=== PATIENT | male | born 1955 | race Caucasian/White ===

== ENCOUNTER 2016-10-07 10:06 | Inpatient (IN) | payer OTHER ==
[2016-10-07 10:20] VITALS: BMI 24.4
--- NOTE | 2016-10-07 11:53 | HP ---
CIWA Score - CIWA Score Nausea/Vomitin-No Nausea/No Vomiting Muscle Tremors: 4-Moderate,w/Arms Extend Anxiety: 4-Mod. Anxious/Guarded Agitation: 4-Moderately Restless Paroxysmal Sweats: 3 Orientation: 0-Oriented Tacttile Disturbances: 0-None Auditory Disturbances: 0-None Visual Disturbances: 0-None Headache: 0-None Present CIWA-Ar Total Score: 15 Admission ROS BHS - HPI Chief Complaint: Withdrawal sx. Allergies/Adverse Reactions: Allergies Allergy/AdvReac Type Severity Reaction Status Date / Time No Known Drug Allergies Allergy Verified 10/07/16 10:59 History of Present Illness: 61 y/o man with a long hx. of alcoholism is admitted for detox.Pt. has been in previous detox and residential,reports relapsing shortly after completing program. Exam Limitations: No Limitations - Ebola screening Have you traveled outside of the country in the last 21 days: No Have you had contact with anyone from an Ebola affected area: No Have you been sick,other than usual withdrawal symptoms: No Do you have a fever: No - Review of Systems Constitutional: Diaphoresis EENT: reports: No Symptoms Reported Respiratory: reports: No Symptoms reported Cardiac: reports: No Symptoms Reported GI: reports: Abdominal cramping : reports: No Symptoms Reported Musculoskeletal: reports: Back Pain, Joint Pain Integumentary: reports: Sweating Neuro: reports: Tremors Endocrine: reports: No Symptoms Reported Hematology: reports: No Symptoms Reported Psychiatric: reports: No Sypmtoms Reported Other Systems: Reviewed and Negative Patient History - Patient Medical History Hx Anemia: No Hx Asthma: No Hx Chronic Obstructive Pulmonary Disease (COPD): No Hx Cancer: No Hx Cardiac Disorders: No Hx Congestive Heart Failure: No Hx Hypertension: No Hx Hypercholesterolemia: No Hx Pacemaker: No HX Cerebrovascular Accident: No Hx Seizures: No Hx Dementia: No Hx Diabetes: No Hx Gastrointestinal Disorders: No Hx Liver Disease: No Hx Genitourinary Disorders: No Hx Sexually Transmitted Disorders: Yes (1982- GONORRHEA & Syphillis in 1973) Hx Renal Disease (ESRD): No Hx Thyroid Disease: No Hx Human Immunodeficiency Virus (HIV): No Hx Hepatitis C: No Hx Depression: No Hx Suicide Attempt: No Hx Bipolar Disorder: No Hx Schizophrenia: No Other Medical History: Rheumatoid Arthritis - Patient Surgical History Past Surgical History: Yes Hx Neurologic Surgery: No Hx Cataract Extraction: No Hx Cardiac Surgery: No Hx Lung Surgery: No Hx Breast Surgery: No Hx Breast Biopsy: No Hx Abdominal Surgery: No Hx Appendectomy: No Hx Cholecystectomy: No Hx Genitourinary Surgery: No Hx Section: No Hx Orthopedic Surgery: No Other Surgical History: RT Testicular hernia repair 1992 Anesthesia Reaction: No - PPD History Previous Implant?: Yes Documented Results: Negative w/o proof Implanted On Prior R Admission?: No PPD to be Administered?: Yes - Smoking Cessation Smoking history: Current every day smoker Have you smoked in the past 12 months: Yes Aproximately how many cigarettes per day: 20 Hx Chewing Tobacco Use: No Initiated information on smoking cessation: Yes 'Breaking Loose' booklet given: 10/07/16 - Substance & Tx. History Hx Alcohol Use: Yes Hx Substance Use: Yes Substance Use Type: Alcohol, Cocaine Hx Substance Use Treatment: Yes (Detox & Residential) - Substances Abused Alcohol Route: Oral Frequency: Daily Amount used: Maria Luisa 1 pint & Beer 36 oz Age of first use: 8 Date of Last Use: 10/07/16 Cocaine Route: Inhalation Frequency: 1-3 times last 30 days Amount used: $20 - 1bag Age of first use: 24 Date of Last Use: 10/06/16 Family Disease History - Family Disease History Family History: Denies Admission Physical Exam S - Vital Signs Vital Signs: Vital Signs - 24 hr 10/07/16 10:18 Temperature 96 F L Pulse Rate 116 H Respiratory 20 Rate Blood Pressure 148/78 - Physical General Appearance: Yes: Alcohol on Breath, Tremorous, Irritable, Sweating, Anxious HEENTM: Yes: Within Normal Limits Respiratory: Yes: Chest Non-Tender, Lungs Clear, Normal Breath Sounds Neck: Yes: Supple Breast: Yes: Breast Exam Deferred Cardiology: Yes: Regular Rhythm, Regular Rate, S1, S2 Abdominal: Yes: Normal Bowel Sounds, Non Tender, Soft Genitourinary: Yes: Within Normal Limits Back: Yes: Within Normal Limits Musculoskeletal: Yes: Joint swelling Extremities: Yes: Tremors, Swelling, Other (Deformity of metacarpal joints, ulnar deviation.) Neurological: Yes: Fully Oriented, Alert Integumentary: Yes: Diaphoresis, Rash (left ankle) Lymphatic: Yes: Within Normal Limits - Diagnostic (1) Alcohol dependence with uncomplicated withdrawal Current Visit: Yes Status: Acute (2) Cocaine dependence, uncomplicated Current Visit: Yes Status: Acute (3) Rheumatoid arthritis Current Visit: Yes Status: Acute Cleared for Admission [facility] - Detox or Rehab [facility] Level of Care: Medically Managed Detox Regimen/Protocol: Librium [facility] Breath Alcohol Content Breath Alcohol Content: 0.019 Urine Drug Screen - Results Urine Drug Screen Results: KAZ-Cocaine
[2016-10-07] MEDS ORDERED: MAG HYDROX/AL HYDROX/SIMETH 30 ML UNIT-DOSE CUP PO PRN (12:06)
[2016-10-07] MEDS ORDERED: MAGNESIUM HYDROX 2400MG/30ML ORAL SUSPENSION 30 ML CUP PO PRN (12:06)
[2016-10-07] MEDS ORDERED: MAGNESIUM CITRATE 300 ML BOTTLE PO PRN (12:06)
[2016-10-07] MEDS ORDERED: NICOTINE POLACRILEX 2 MG GUM BUC PRN (12:06)
[2016-10-07] MEDS ORDERED: hydrOXYzine PAMOATE 50 MG CAPSULE (FP) PO PRN (12:06)
[2016-10-07] MEDS ORDERED: P-EPHED 60MG/TRIPROLIDI 2.5MG TABLET PO PRN (12:06)
[2016-10-07] MEDS ORDERED: LOPERAMIDE HCL 2 MG CAPSULE PO PRN (12:06)
[2016-10-07] MEDS ORDERED: IBUPROFEN 400 MG TABLET (FP) PO PRN (12:06)
[2016-10-07] MEDS ORDERED: ACETAMINOPHEN 325 MG TABLET (FP) PO PRN (12:06)
[2016-10-07] MEDS ORDERED: chlordiazePOXIDE HCL 25 MG CAPSULE PO PRN (12:06)
[2016-10-07] MEDS ORDERED: MENTHOL/PHENOL 1 EACH UD MM PRN (12:06)
[2016-10-07] MEDS ORDERED: chlordiazePOXIDE HCL 25 MG CAPSULE PO ONE (12:10)
--- NOTE | 2016-10-07 12:38 | PN ---
S CIWA - CIWA Score Nausea/Vomitin Muscle Tremors: 3 Anxiety: 2 Agitation: 1-Slight > Activity Paroxysmal Sweats: 3 Orientation: 4Disoriented Place/Person Tacttile Disturbances: 2-Mild Itch/Numbness/Burn Auditory Disturbances: 0-None Visual Disturbances: 0-None Headache: 0-None Present CIWA-Ar Total Score: 18 BHS Progress Note (SOAP) Subjective: Diarrhea, Nausea, Stomach Ache, Fatigue, Sweating, Interrupted sleep. Objective: PT. A & O X 1 (DISORIENTED ABOUT DAY / DATE AND ABOUT LOCATION). 10/07/16 12:29 Vital Signs Temperature 96 F L 10/07/16 10:18 Pulse Rate 116 H 10/07/16 10:18 Respiratory Rate 20 10/07/16 10:18 Blood Pressure 148/78 10/07/16 10:18 O2 Sat by Pulse Oximetry (%) ADMISSION LABS NOT YET COLLECTED. 10/07/16 12:39 Assessment: 10/07/16 12:40 WITHDRAWAL SYMPTOMS. Plan: CONTINUE DETOX. ADVISED PATIENT TO FOLLOW-UP WITH [facility] / REHAB MEDICAL PROVIDER AFTER DISCHARGE FROM DETOX FOR GENERAL MEDICAL ASSESSMENT AND FOR ABNORMAL ADMISSION LAB VALUES.
[2016-10-07] MEDS: GABAPENTIN 300 MG CAPSULE (FP) PO SCH (12:43)
[2016-10-07] MEDS: predniSONE 20 MG TABLET (UD) PO SCH (12:43)
[2016-10-07] MEDS: PANTOPRAZOLE 40 MG TABLET (FP) PO SCH (12:43)
[2016-10-07] MEDS: guaiFENesin/D-METHORPHAN HB 10 ML UNIT-DOSE CUPS PO PRN (12:44)
[2016-10-07] MEDS: NICOTINE 21 MG/24 HOURS TOPICAL PATCH TD SCH (13:32)
[2016-10-07] MEDS: HYDROCORTISONE 1% TOPICAL CREAM 30 GM TUBE TP SCH ×3 (13:33→22:30)
--- NOTE | 2016-10-07 15:50 | CONSULT ---
[facility] Psychiatric Consult - Data Date of interview: 10/07/16 Admission source: [facility] Identifying data: This is 61 years old male with no psychiatric hospitalization history intoxicated with: Alcohol, Cocaine and Nicotine Substance Abuse History: - Smoking Cessation. Smoking history: Current every day smoker. Have you smoked in the past 12 months: Yes. Aproximately how many cigarettes per day: 20. Hx Chewing Tobacco Use: No. Initiated information on smoking cessation: Yes. 'Breaking Loose' booklet given: 10/07/16. - Substance & Tx. History. Hx Alcohol Use: Yes. Hx Substance Use: Yes. Substance Use Type : Alcohol, Cocaine. Hx Substance Use Treatment: Yes (Detox & Residential). - Substances Abused. Alcohol. Route: Oral. Frequency: Daily. Amount used: Maria Luisa 1 pint & Beer 36 oz. Age of first use: 8. Date of Last Use: 10/07/16. Cocaine. Route: Inhalation. Frequency: 1-3 times last 30 days. Amount used : $20 - 1bag. Age of first use: 24. Date of Last Use: 10/06/16 Medical History: Rheumathoid Arthritis Psychiatric History: Patioent reports hiostopry of depression and anxiety, reports taking prior to admission: Gabapentin 300mg po bid Physical/Sexual Abuse/Trauma History: Denies Additional Comment: Observation. Detox Unit Care Protocol Mental Status Exam - Mental Status Exam Alert and Oriented to: Person Cognitive Function: Fair Patient Appearance: Well Groomed Mood: Apprehensive Affect: Mood Congruent Patient Behavior: Cooperative Speech Pattern: Appropriate Voice Loudness: Mildly Soft/Quiet Thought Process: Goal Oriented Thought Disorder: Being Controlled Hallucinations: Denies Suicidal Ideation: Denies Homicidal Ideation: Denies Insight/Judgement: Fair Sleep: Difficulty falling asleep Appetite: Fair Muscle strength/Tone: Mild Hypotonicity Gait/Station: Shuffling Additional Comments: Observation. Detox Unit Care Protocol Psychiatric Findings - Problem List ([place] 1, 2,3) (1) Alcohol dependence with uncomplicated withdrawal Current Visit: Yes Status: Acute (2) Cocaine dependence, uncomplicated Current Visit: Yes Status: Acute (3) Drug-induced mood disorder Current Visit: Yes Status: Acute - Initial Treatment Plan Initial Treatment Plan: Observation. Detox Unit Care Protocol
--- NOTE | 2016-10-07 16:21 | EKG ---
Test Reason : Blood Pressure : / mmHG Vent. Rate : 108 BPM Atrial Rate : 108 BPM P-R Int : 150 ms QRS Dur : 082 ms QT Int : 322 ms P-R-T Axes : 087 086 076 degrees QTc Int : 431 ms SINUS TACHYCARDIA OTHERWISE NORMAL ECG NO PREVIOUS ECGS AVAILABLE Confirmed by KURT CEDILLO MD ([id number]) on 10/07/2016 4:21:18 PM Referred By: Elpidio Alves Confirmed By:KURT CEDILLO MD
[2016-10-07] MEDS: chlordiazePOXIDE HCL 25 MG CAPSULE PO SCH ×2 (17:18→22:29)
[2016-10-07 17:42] LABS: URINE APPEARANCE CLEAR; URINE BILIRUBIN NEGATIVE (NEGATIVE); URINE BLOOD NEGATIVE (NEGATIVE); URINE COLOR DKYELLOW; URINE GLUCOSE (UA) 1+ (NEGATIVE); URINE KETONE 1+ (NEGATIVE); URINE NITRITE NEGATIVE (NEGATIVE); URINE UROBILINOGEN 2.0 E.U/dl E.U./dl (0.2-1.0)
[2016-10-07 18:12] LABS: URINE LEUK ESTERASE 1+ (NEGATIVE); URINE PROTEIN 1+ (NEGATIVE)
[2016-10-07 19:14] LABS: URINE MUCUS RARE; URINE RBC 4 /hpf (0-3); URINE WBC 12 /hpf (3-5)
[2016-10-07] MEDS: THIAMINE HCL 100 MG TABLET (FP) PO SCH (22:28)
[2016-10-08] MEDS: chlordiazePOXIDE HCL 25 MG CAPSULE PO SCH ×4 (05:40→22:41)
[2016-10-08] MEDS: GABAPENTIN 300 MG CAPSULE (FP) PO SCH (10:34)
[2016-10-08] MEDS: PANTOPRAZOLE 40 MG TABLET (FP) PO SCH (10:34)
[2016-10-08] MEDS: predniSONE 20 MG TABLET (UD) PO SCH (10:34)
[2016-10-08] MEDS: PRENATAL VITAMINS W/ FOLIC ACID TABLET (FP) PO SCH (10:34)
[2016-10-08] MEDS: HYDROCORTISONE 1% TOPICAL CREAM 30 GM TUBE TP SCH ×4 (10:35→22:43)
[2016-10-08] MEDS: NICOTINE 21 MG/24 HOURS TOPICAL PATCH TD SCH (10:35)
[2016-10-08 11:01] LABS: HIV 1 & 2 AB NEGATIVE; HIV 1 AGp24 NEGATIVE
[2016-10-08 11:23] LABS: MCH 32.6 pg (25.7-33.7); MCHC 33.5 g/dl (32.0-35.9); MEAN CELL VOLUME 97.2 fl (80-96); MEAN PLT VOLUME 9.4 fl (7.5-11.1); PLATELET COUNT 204 K/MM3 (134-434); RDW 13.5 % (11.9-15.9); WHITE BLOOD COUNT 8.2 K/mm3 (4.0-10.0)
--- NOTE | 2016-10-08 11:33 | PN ---
S CIWA - CIWA Score Nausea/Vomitin Muscle Tremors: 4-Moderate,w/Arms Extend Anxiety: 4-Mod. Anxious/Guarded Agitation: 4-Moderately Restless Paroxysmal Sweats: 3 Orientation: 0-Oriented Tacttile Disturbances: 0-None Auditory Disturbances: 0-None Visual Disturbances: 0-None Headache: 0-None Present CIWA-Ar Total Score: 18 BHS Progress Note (SOAP) Subjective: nausea, sweats, interrupted sleep, anxiety, tremors Objective: 10/08/16 11:32 Vital Signs - 8 hr 10/08/16 10/08/16 06:30 09:52 Temperature 97.1 F L 97.5 F L Pulse Rate 90 90 Respiratory 18 18 Rate Blood Pressure 127/85 112/77 Laboratory Tests 10/07/16 10/07/16 10/08/16 10:00 14:00 06:00 WBC 8.2 RBC 4.64 Hgb 15.1 Hct 45.1 MCV 97.2 H MCHC 33.5 RDW 13.5 Plt Count 204 MPV 9.4 Urine Color Dkyellow Urine Appearance Clear Urine pH 5.0 Ur Specific [place] 1.024 Urine Protein 1+ H Urine Glucose (UA) 1+ H Urine Ketones 1+ H Urine Blood Negative Urine Nitrite Negative Urine Bilirubin Negative Urine Urobilinogen 2.0 e.u/dl Ur Leukocyte Esterase 1+ H Urine RBC 4 Urine WBC 12 Ur Epithelial Cells Rare Urine Mucus Rare HIV 1&2 Antibody Screen Negative HIV P24 Antigen Negative labs still pending Assessment: 10/08/16 11:32 withdrawal sx Plan: cont detox, fluids, encourage ambulation
[2016-10-08 11:45] LABS: ALBUMIN 4.3 g/dl (3.4-5.0); ALK PHOS 86 U/L (45-117); ANION GAP 10 (8-16); BILIRUBIN,TOTAL 1.2 mg/dL (0.2-1.0); CALCIUM 9.2 mg/dL (8.5-10.1); CO2 27 mmol/L (21-32); COCKROFT - GAULT 75.01; GLUCOSE,RANDOM 98 mg/dL (74-106); SGOT/AST 60 U/L (15-37); SGPT/ALT 42 U/L (12-78); TOT PROT 7.7 g/dl (6.4-8.2)
[2016-10-08 11:49] LABS: SICKLE CELL SCREEN NEGATIVE (NEGATIVE)
[2016-10-08] MEDS: diphenhydrAMINE HCL 50 MG CAPSULE PO PRN (22:41)
[2016-10-08] MEDS: THIAMINE HCL 100 MG TABLET (FP) PO SCH (22:41)
[2016-10-09] MEDS: chlordiazePOXIDE HCL 25 MG CAPSULE PO SCH ×2 (05:17→10:15)
[2016-10-09] MEDS: PANTOPRAZOLE 40 MG TABLET (FP) PO SCH (10:15)
[2016-10-09] MEDS: predniSONE 20 MG TABLET (UD) PO SCH (10:15)
[2016-10-09] MEDS: HYDROCORTISONE 1% TOPICAL CREAM 30 GM TUBE TP SCH ×4 (10:15→22:32)
[2016-10-09] MEDS: GABAPENTIN 300 MG CAPSULE (FP) PO SCH (10:15)
[2016-10-09] MEDS: PRENATAL VITAMINS W/ FOLIC ACID TABLET (FP) PO SCH (10:15)
[2016-10-09] MEDS: NICOTINE 21 MG/24 HOURS TOPICAL PATCH TD SCH (10:16)
--- NOTE | 2016-10-09 12:46 | PN ---
S Progress Note (SOAP) Subjective: Generalized muscle and joint pain Objective: 10/09/16 12:44 Vital Signs - 8 hr 10/09/16 10/09/16 06:42 11:14 Temperature 97.9 F 96.3 F L Pulse Rate 75 84 Respiratory 16 18 Rate Blood Pressure 131/80 143/87 Laboratory Last Values WBC 8.2 K/mm3 (4.0-10.0) 10/08/16 06:00 RBC 4.64 M/mm3 (4.00-5.60) 10/08/16 06:00 Hgb 15.1 GM/dL (11.7-16.9) 10/08/16 06:00 Hct 45.1 % (35.4-49) 10/08/16 06:00 MCV 97.2 fl (80-96) H 10/08/16 06:00 MCHC 33.5 g/dl (32.0-35.9) 10/08/16 06:00 RDW 13.5 % (11.9-15.9) 10/08/16 06:00 Plt Count 204 K/MM3 (134-434) 10/08/16 06:00 MPV 9.4 fl (7.5-11.1) 10/08/16 06:00 Sickle Cell Screen Negative (NEGATIVE) 10/08/16 06:00 Sodium 141 mmol/L (136-145) 10/08/16 06:00 Potassium 4.2 mmol/L (3.5-5.1) 10/08/16 06:00 Chloride 104 mmol/L (98-107) 10/08/16 06:00 Carbon Dioxide 27 mmol/L (21-32) 10/08/16 06:00 Anion Gap 10 (8-16) 10/08/16 06:00 BUN 13 mg/dL (7-18) 10/08/16 06:00 Creatinine 1.0 mg/dL (0.7-1.3) 10/08/16 06:00 Creat Clearance w eGFR > 60 (>60) 10/08/16 06:00 Random Glucose 98 mg/dL (74-106) 10/08/16 06:00 Calcium 9.2 mg/dL (8.5-10.1) 10/08/16 06:00 Total Bilirubin 1.2 mg/dL (0.2-1.0) H 04/21/17 06:00 AST 60 U/L (15-37) H 10/08/16 06:00 ALT 42 U/L (12-78) 10/08/16 06:00 Alkaline Phosphatase 86 U/L (45-117) 10/08/16 06:00 Total Protein 7.7 g/dl (6.4-8.2) 10/08/16 06:00 Albumin 4.3 g/dl (3.4-5.0) 10/08/16 06:00 Urine Color Dkyellow 10/07/16 14:00 Urine Appearance Clear 10/07/16 14:00 Urine pH 5.0 (5.0-8.0) 10/07/16 14:00 Ur Specific [place] 1.024 (1.001-1.035) 10/07/16 14:00 Urine Protein 1+ (NEGATIVE) H 10/07/16 14:00 Urine Glucose (UA) 1+ (NEGATIVE) H 10/07/16 14:00 Urine Ketones 1+ (NEGATIVE) H 10/07/16 14:00 Urine Blood Negative (NEGATIVE) 10/07/16 14:00 Urine Nitrite Negative (NEGATIVE) 10/07/16 14:00 Urine Bilirubin Negative (NEGATIVE) 10/07/16 14:00 Urine Urobilinogen 2.0 e.u/dl E.U./dl (0.2-1.0) 10/07/16 14:00 Ur Leukocyte Esterase 1+ (NEGATIVE) H 10/07/16 14:00 Urine RBC 4 /hpf (0-3) 10/07/16 14:00 Urine WBC 12 /hpf (3-5) 10/07/16 14:00 Ur Epithelial Cells Rare /hpf (FEW) 10/07/16 14:00 Urine Mucus Rare 10/07/16 14:00 RPR Titer Nonreactive (NONREACTIVE) 10/08/16 06:00 HIV 1&2 Antibody Screen Negative 10/07/16 10:00 HIV P24 Antigen Negative 10/07/16 10:00 Labs noted, mild leukocyte-esterase, asymptomatic Assessment: 10/09/16 12:45 withdrawal sx Plan: continue detox
[2016-10-09] MEDS: guaiFENesin/D-METHORPHAN HB 10 ML UNIT-DOSE CUPS PO PRN (15:42)
[2016-10-09] MEDS: chlordiazePOXIDE 5 MG CAPSULE PO SCH ×2 (17:27→22:33)
[2016-10-09] MEDS: diphenhydrAMINE HCL 50 MG CAPSULE PO PRN (22:33)
[2016-10-09] MEDS: THIAMINE HCL 100 MG TABLET (FP) PO SCH (22:33)
[2016-10-10] MEDS: chlordiazePOXIDE 5 MG CAPSULE PO SCH ×2 (05:28→10:19)
[2016-10-10] MEDS: PRENATAL VITAMINS W/ FOLIC ACID TABLET (FP) PO SCH (10:19)
[2016-10-10] MEDS: PANTOPRAZOLE 40 MG TABLET (FP) PO SCH (10:19)
[2016-10-10] MEDS: HYDROCORTISONE 1% TOPICAL CREAM 30 GM TUBE TP SCH ×4 (10:19→22:49)
[2016-10-10] MEDS: predniSONE 20 MG TABLET (UD) PO SCH (10:19)
[2016-10-10] MEDS: GABAPENTIN 300 MG CAPSULE (FP) PO SCH (10:19)
[2016-10-10] MEDS: NICOTINE 21 MG/24 HOURS TOPICAL PATCH TD SCH (10:22)
--- NOTE | 2016-10-10 14:43 | PN ---
BHS Progress Note (SOAP) Subjective: Tremor, interrupted sleep (states he took benadryl and it makes him confused), anxious Objective: 10/10/16 14:39 Last Vital Signs Temp Pulse Resp BP Pulse Ox 98.3 F 85 18 122/74 10/10/16 13:14 10/10/16 13:14 10/10/16 13:14 10/10/16 13:14 Laboratory Tests 10/07/16 10/07/16 10/08/16 10:00 14:00 06:00 WBC 8.2 RBC 4.64 Hgb 15.1 Hct 45.1 MCV 97.2 H MCHC 33.5 RDW 13.5 Plt Count 204 MPV 9.4 Sickle Cell Screen Negative Sodium Potassium Chloride Carbon Dioxide Anion Gap BUN Creatinine Creat Clearance w eGFR Random Glucose Calcium Total Bilirubin AST ALT Alkaline Phosphatase Total Protein Albumin Urine Color Dkyellow Urine Appearance Clear Urine pH 5.0 Ur Specific [place] 1.024 Urine Protein 1+ H Urine Glucose (UA) 1+ H Urine Ketones 1+ H Urine Blood Negative Urine Nitrite Negative Urine Bilirubin Negative Urine Urobilinogen 2.0 e.u/dl Ur Leukocyte Esterase 1+ H Urine RBC 4 Urine WBC 12 Ur Epithelial Cells Rare Urine Mucus Rare RPR Titer HIV 1&2 Antibody Screen Negative HIV P24 Antigen Negative 10/08/16 10/08/16 06:00 06:00 WBC RBC Hgb Hct MCV MCHC RDW Plt Count MPV Sickle Cell Screen Sodium 141 Potassium 4.2 Chloride 104 Carbon Dioxide 27 Anion Gap 10 BUN 13 Creatinine 1.0 Creat Clearance w eGFR > 60 Random Glucose 98 Calcium 9.2 Total Bilirubin 1.2 H AST 60 H ALT 42 Alkaline Phosphatase 86 Total Protein 7.7 Albumin 4.3 Urine Color Urine Appearance Urine pH Ur Specific [place] Urine Protein Urine Glucose (UA) Urine Ketones Urine Blood Urine Nitrite Urine Bilirubin Urine Urobilinogen Ur Leukocyte Esterase Urine RBC Urine WBC Ur Epithelial Cells Urine Mucus RPR Titer Nonreactive HIV 1&2 Antibody Screen HIV P24 Antigen Labs noted: UA with 1+ protein and 1+ glucose Assessment: 10/10/16 14:40 Withdrawal symptoms Noted with mild proteinuria and glycosuria Plan: Continue detox Mild proteinuria and glycosuria: encouraged to drink lots of water, follow up with PCP for monitoring
[2016-10-10] MEDS: chlordiazePOXIDE HCL 10 MG CAPSULE PO SCH ×2 (17:50→22:48)
[2016-10-10] MEDS ORDERED: ZOLPIDEM TARTRATE 5 MG TABLET PO ONE (22:00)
[2016-10-10] MEDS: THIAMINE HCL 100 MG TABLET (FP) PO SCH (22:48)
[2016-10-11] MEDS: chlordiazePOXIDE HCL 10 MG CAPSULE PO SCH ×2 (05:14→10:12)
[2016-10-11 09:34] VITALS: BP 95/66; PULSE 86; TEMP 98.1
[2016-10-11] MEDS: PRENATAL VITAMINS W/ FOLIC ACID TABLET (FP) PO SCH (10:11)
[2016-10-11] MEDS: HYDROCORTISONE 1% TOPICAL CREAM 30 GM TUBE TP SCH (10:11)
[2016-10-11] MEDS: PANTOPRAZOLE 40 MG TABLET (FP) PO SCH (10:12)
[2016-10-11] MEDS: GABAPENTIN 300 MG CAPSULE (FP) PO SCH (10:12)
[2016-10-11] MEDS: NICOTINE 21 MG/24 HOURS TOPICAL PATCH TD SCH (10:12)
[2016-10-11] MEDS: predniSONE 20 MG TABLET (UD) PO SCH (10:12)
--- NOTE | 2016-10-12 13:21 | DS ---
[facility] Detox Discharge Summary Admission Date: 10/07/16 Discharge Date: 10/11/16 - History Present History: Alcohol Dependence, Cocaine Dependence Pertinent Past History: RA - Physical Exam Results Vital Signs: Vital Signs Temperature 98.1 F 10/11/16 09:33 Pulse Rate 86 10/11/16 09:33 Respiratory Rate 18 10/11/16 09:33 Blood Pressure 95/66 10/11/16 09:33 O2 Sat by Pulse Oximetry (%) Pertinent Admission Physical Exam Findings: Withdrawal sx. Laboratory Tests 10/07/16 10/07/16 10/08/16 10:00 14:00 06:00 WBC 8.2 RBC 4.64 Hgb 15.1 Hct 45.1 MCV 97.2 H MCHC 33.5 RDW 13.5 Plt Count 204 MPV 9.4 Sickle Cell Screen Negative Sodium Potassium Chloride Carbon Dioxide Anion Gap BUN Creatinine Creat Clearance w eGFR Random Glucose Calcium Total Bilirubin AST ALT Alkaline Phosphatase Total Protein Albumin Urine Color Dkyellow Urine Appearance Clear Urine pH 5.0 Ur Specific [place] 1.024 Urine Protein 1+ H Urine Glucose (UA) 1+ H Urine Ketones 1+ H Urine Blood Negative Urine Nitrite Negative Urine Bilirubin Negative Urine Urobilinogen 2.0 e.u/dl Ur Leukocyte Esterase 1+ H Urine RBC 4 Urine WBC 12 Ur Epithelial Cells Rare Urine Mucus Rare RPR Titer HIV 1&2 Antibody Screen Negative HIV P24 Antigen Negative 10/08/16 10/08/16 06:00 06:00 WBC RBC Hgb Hct MCV MCHC RDW Plt Count MPV Sickle Cell Screen Sodium 141 Potassium 4.2 Chloride 104 Carbon Dioxide 27 Anion Gap 10 BUN 13 Creatinine 1.0 Creat Clearance w eGFR > 60 Random Glucose 98 Calcium 9.2 Total Bilirubin 1.2 H AST 60 H ALT 42 Alkaline Phosphatase 86 Total Protein 7.7 Albumin 4.3 Urine Color Urine Appearance Urine pH Ur Specific [place] Urine Protein Urine Glucose (UA) Urine Ketones Urine Blood Urine Nitrite Urine Bilirubin Urine Urobilinogen Ur Leukocyte Esterase Urine RBC Urine WBC Ur Epithelial Cells Urine Mucus RPR Titer Nonreactive HIV 1&2 Antibody Screen HIV P24 Antigen labs noted - Treatment Hospital Course: Detox Protocol Followed, Detoxed Safely, Responded well, Discharged Condition Good, Rehab Referral Accepted - Medication Discharge Medications: Ambulatory Orders Gabapentin 300 mg PO DAILY 10/07/16 Omeprazole Magnesium [Prilosec] 20 mg PO DAILY 10/07/16 Prednisone [Deltasone -] 20 mg PO DAILY 10/07/16 - Diagnosis (1) Alcohol dependence with uncomplicated withdrawal Status: Acute (2) Cocaine dependence, uncomplicated Status: Acute (3) Rheumatoid arthritis Status: Acute (4) Drug-induced mood disorder Status: Acute - AMA Did Patient Leave Against Medical Advice: No
== END 2016-10-11 10:25 | disposition home or self-care (01) | DRG 774 ==
LOC: YASAS 10:06 → Y3N 11:21
PROVIDERS: ADMIT Internal Medicine; ATTEND Internal Medicine
PROC: HZ2ZZZZ Detoxification Services for Substance Abuse Treatment (ICD-10-PCS; principal; 2016-10-07)
DX: F10.230 Alcohol dependence with withdrawal, uncomplicated (principal); F14.20 Cocaine dependence, uncomplicated; F17.210 Nicotine dependence, cigarettes, uncomplicated; F19.24 Other psychoactive substance dependence with psychoactive substance-induced mood disorder; M06.9 Rheumatoid arthritis, unspecified; R80.9 Proteinuria, unspecified; R81 Glycosuria; Z87.438 Personal history of other diseases of male genital organs
CPT/HCPCS: 36415; 80053; 81003; 81015; 85027; 85660; 86593; 87389; 93005; 93010

== ENCOUNTER 2017-10-13 10:15 | Inpatient (IN) | payer OTHER | END 2017-10-17 09:50 | disposition home or self-care (01) | DRG 774 | LOC: YASAS 10:15 → Y3N 11:42 | PROVIDERS: ADMIT Internal Medicine | PROC: HZ2ZZZZ Detoxification Services for Substance Abuse Treatment (ICD-10-PCS; principal; 2017-10-13) | CPT/HCPCS: 36415; 80053; 81003; 85027; 86593; 87389; 93005; 93010 ==

== ENCOUNTER 2018-04-17 11:38 | Inpatient (IN) | payer OTHER ==
[2018-04-17 12:34] VITALS: BMI 22.9
--- NOTE | 2018-04-17 14:55 | HP ---
CIWA Score - CIWA Score Nausea/Vomitin Muscle Tremors: 2 Anxiety: 2 Agitation: 2 Paroxysmal Sweats: 1-Minimal Palms Moist Orientation: 0-Oriented Tacttile Disturbances: 1-Very Mild Itch/Numbness Auditory Disturbances: 1-Very Mild Visual Disturbances: 1-Very Mild Sensitivity Headache: 2-Mild CIWA-Ar Total Score: 14 Admission ROS BHS - HPI Chief Complaint: i need help to stop drinking alcohol and cocaine Allergies/Adverse Reactions: Allergies Allergy/AdvReac Type Severity Reaction Status Date / Time No Known Drug Allergies Allergy Verified 04/17/18 13:02 History of Present Illness: this 62 years old male with alcohol and cocaine dependence seeking detox, withdrawal symptom,last detox [facility] 10/13/17 to blackout multiple admissions in detox,kee[place] relapsing nicotine dependence anxiety and depression,insomnia longest period of sobriety 1 year Exam Limitations: No Limitations - Ebola screening Have you traveled outside of the country in the last 21 days: No Have you had contact with anyone from an Ebola affected area: No Have you been sick,other than usual withdrawal symptoms: No Do you have a fever: No - Review of Systems Constitutional: Loss of Appetite, Malaise, Night Sweats, Changes in sleep, Weakness, Unintentional Wgt. Loss EENT: reports: Nose Congestion Respiratory: reports: No Symptoms reported, Other (history of fx both rbs in the past) Cardiac: reports: Palpitations GI: reports: Nausea, Vomiting, Abdominal cramping : reports: No Symptoms Reported Musculoskeletal: reports: Back Pain, Muscle Pain Integumentary: reports: Dryness Neuro: reports: Headache, Tremors Endocrine: reports: No Symptoms Reported Hematology: reports: No Symptoms Reported Psychiatric: reports: No Sypmtoms Reported, Judgement Intact, Mood/Affect Appropiate, Orientated x3, Anxious, Depressed (insomnia) Patient History - Patient Medical History Hx Anemia: No Hx Asthma: No Hx Chronic Obstructive Pulmonary Disease (COPD): No Hx Cancer: No Hx Cardiac Disorders: No Hx Congestive Heart Failure: No Hx Hypertension: No Hx Hypercholesterolemia: No Hx Pacemaker: No HX Cerebrovascular Accident: No Hx Seizures: No Hx Dementia: No Hx Diabetes: No Hx Gastrointestinal Disorders: No Hx Liver Disease: No Hx Genitourinary Disorders: No Hx Sexually Transmitted Disorders: Yes (1982- GONORRHEA & Syphillis in 1973) Hx Renal Disease (ESRD): No Hx Thyroid Disease: No Hx Human Immunodeficiency Virus (HIV): No (last 06/05 negative) Hx Hepatitis C: No Hx Depression: Yes (anxiety) Hx Suicide Attempt: No Hx Bipolar Disorder: No Hx Schizophrenia: No Other Medical History: insomnia,no suicidal,no homicidal - Patient Surgical History Past Surgical History: Yes Hx Neurologic Surgery: No Hx Cataract Extraction: No Hx Cardiac Surgery: No Hx Lung Surgery: No Hx Breast Surgery: No Hx Breast Biopsy: No Hx Abdominal Surgery: No Hx Appendectomy: No Hx Cholecystectomy: No Hx Genitourinary Surgery: No Hx Section: No Hx Orthopedic Surgery: No Other Surgical History: RT Testicular hernia repair 1992 Anesthesia Reaction: No - PPD History Previous Implant?: Yes Documented Results: Negative w/proof Implanted On Prior [facility] Admission?: Yes Date: 10/15/17 Results: NEGATIVE PPD to be Administered?: No - Smoking Cessation Smoking history: Current every day smoker Have you smoked in the past 12 months: Yes Aproximately how many cigarettes per day: 10 Cigars Per Day: 0 Hx Chewing Tobacco Use: No Initiated information on smoking cessation: Yes 'Breaking Loose' booklet given: 04/17/18 - Substance & Tx. History Hx Alcohol Use: Yes Hx Substance Use: Yes Substance Use Type: Alcohol, Cocaine Hx Substance Use Treatment: Yes ([facility] 10/13/17 to 10/17/17) - Substances Abused Alcohol Route: Oral Frequency: Daily Amount used: 5-6 15ml bottles of bella, 4-5 12oz cans of beer Age of first use: 14 Date of Last Use: 04/17/18 Crack Route: Inhalation Frequency: 1-3 times last 30 days Amount used: 1-2 bags Age of first use: 35 Date of Last Use: 04/14/18 Family Disease History - Family Disease History Family Disease History: Other: Father (no contact) Admission Physical Exam [facility] - Vital Signs Vital Signs: Vital Signs - 24 hr 04/17/18 12:33 Temperature 99.4 F Pulse Rate 106 H Respiratory 18 Rate Blood Pressure 125/78 - Physical General Appearance: Yes: Moderate Distress, Tremorous, Irritable, Sweating, Anxious HEENTM: Yes: Normal ENT Inspection, JOSE, Pharynx Normal, Other (cataract left eye) Respiratory: Yes: Lungs Clear, Normal Breath Sounds, No Respiratory Distress Neck: Yes: Within Normal Limits, Supple, Trachea in good position Breast: Yes: Within Normal Limits Cardiology: Yes: Regular Rhythm, Regular Rate, S1, S2 Abdominal: Yes: Within Normal Limits, Normal Bowel Sounds, Non Tender, Flat, Soft Genitourinary: Yes: Within Normal Limits Back: Yes: Muscle Spasm Musculoskeletal: Yes: Back pain, Muscle Pain Extremities: Yes: Tremors Neurological: Yes: Within Normal Limits, cone former II-XII NML intact, Alert, Motor Strength 5/5 Integumentary: Yes: Dry Lymphatic: Yes: Within Normal Limits - Diagnostic (1) Alcohol dependence with uncomplicated withdrawal Current Visit: No Status: Acute (2) Cocaine dependence, uncomplicated Current Visit: No Status: Acute (3) Insomnia secondary to depression with anxiety Current Visit: No Status: Acute (4) Nicotine dependence Current Visit: No Status: Acute Qualifiers: Nicotine product type: cigarettes Substance use status: in withdrawal Qualified Code(s): F17.213 - Nicotine dependence, cigarettes, with withdrawal (5) Weight loss Current Visit: No Status: Acute (6) Fracture, ribs Current Visit: No Status: Suspected Qualifiers: Encounter type: subsequent encounter Rib fracture type: multiple ribs Fracture type: closed Laterality: right Fracture healing: with routine healing Qualified Code(s): S22.41XD - Multiple fractures of ribs, right side, subsequent encounter for fracture with routine healing Cleared for Admission [facility] - Detox or Rehab [facility] Level of Care: Medically Managed Detox Regimen/Protocol: Librium [facility] Breath Alcohol Content Breath Alcohol Content: 0.079 Urine Drug Screen - Results Drug Screen Negative: No Urine Drug Screen Results: KAZ-Cocaine
[2018-04-17] MEDS ORDERED: chlordiazePOXIDE HCL 25 MG CAPSULE PO PRN (15:08)
[2018-04-17] MEDS ORDERED: MAG HYDROX/AL HYDROX/SIMETH 30 ML UNIT-DOSE CUP PO PRN (15:08)
[2018-04-17] MEDS ORDERED: MENTHOL/PHENOL 1 EACH UD MM PRN (15:08)
[2018-04-17] MEDS ORDERED: P-EPHED 60MG/TRIPROLIDI 2.5MG TABLET PO PRN (15:08)
[2018-04-17] MEDS ORDERED: ACETAMINOPHEN 325 MG TABLET (FP) PO PRN (15:08)
[2018-04-17] MEDS ORDERED: MAGNESIUM CITRATE 300 ML BOTTLE PO PRN (15:08)
[2018-04-17] MEDS ORDERED: guaiFENesin/D-METHORPHAN HB 10 ML UNIT-DOSE CUPS PO PRN (15:08)
[2018-04-17] MEDS ORDERED: LOPERAMIDE HCL 2 MG CAPSULE PO PRN (15:08)
[2018-04-17] MEDS ORDERED: MAGNESIUM HYDROX 2400MG/30ML ORAL SUSPENSION 30 ML CUP PO PRN (15:08)
[2018-04-17] MEDS ORDERED: hydrOXYzine PAMOATE 50 MG CAPSULE (FP) PO PRN (15:14)
[2018-04-17] MEDS: IBUPROFEN 400 MG TABLET (FP) PO PRN (15:55)
[2018-04-17] MEDS: chlordiazePOXIDE HCL 25 MG CAPSULE PO SCH ×2 (17:21→22:22)
[2018-04-17 20:34] LABS: URINE APPEARANCE CLEAR; URINE BILIRUBIN NEGATIVE (<2.0 mg/dL); URINE COLOR YELLOW; URINE GLUCOSE (UA) NEGATIVE (NEGATIVE); URINE KETONE NEGATIVE (NEGATIVE); URINE LEUK ESTERASE NEGATIVE (NEGATIVE); URINE NITRITE NEGATIVE (NEGATIVE); URINE PROTEIN NEGATIVE (NEGATIVE); URINE UROBILINOGEN 4.0 E.U/dl mg/dL (0.2-1.0)
[2018-04-17 20:44] LABS: URINE MUCUS RARE
[2018-04-17] MEDS: GABAPENTIN 300 MG CAPSULE (FP) PO SCH (22:22)
[2018-04-17] MEDS: THIAMINE HCL 100 MG TABLET (FP) PO SCH (22:22)
[2018-04-18] MEDS: chlordiazePOXIDE HCL 25 MG CAPSULE PO SCH ×4 (05:39→22:13)
[2018-04-18] MEDS: GABAPENTIN 300 MG CAPSULE (FP) PO SCH ×3 (05:39→22:13)
[2018-04-18] MEDS: IBUPROFEN 400 MG TABLET (FP) PO PRN (05:43)
--- NOTE | 2018-04-18 10:06 | CONSULT ---
[facility] Psychiatric Consult - Data Date of interview: 04/18/18 Admission source: [facility] Identifying data: Patient is a 62 year old male, father of one, unemployed, domiciled, and is supported by [facility]. This is one of multiple admissions for patient. Patient admitted to for alcohol dependence. Substance Abuse History: Smoking Cessation. Smoking history: Current every day smoker. Have you smoked in the past 12 months: Yes. Aproximately how many cigarettes per day: 10. Cigars Per Day: 0. Hx Chewing Tobacco Use: No. Initiated information on smoking cessation: Yes. 'Breaking Loose' booklet given : 04/17/18. - Substance & Tx. History. Hx Alcohol Use: Yes. Hx Substance Use : Yes. Substance Use Type: Alcohol, Cocaine. Hx Substance Use Treatment: Yes ( [facility] 10/13/17 to 10/17/17). - Substances Abused. Alcohol. Route: Oral. Frequency: Daily. Amount used: 5-6 15ml bottles of bella, 4-5 12oz cans of beer. Age of first use: 14. Date of Last Use: 04/17/18. Crack. Route: Inhalation. Frequency: 1-3 times last 30 days. Amount used: 1-2 bags. Age of first use: 35. Date of Last Use: 04/14/18 Medical History: RT Testicular hernia repair 1992 Psychiatric History: Patient denies h/o psychiatric hospitalizations. Outpatient care is provided at [facility] in the [place]. Last saw his outpatient psychiatrist in August. He has an appointment scheduled 04/2018. Patient was previously prescribed lexapro 10mg + Buspar 5mg BID. He reports nonadherence to lexapro in two months. Pt. deneis h/o suicide attempt. Pt. currently denies suicidal and homicidal ideation. Physical/Sexual Abuse/Trauma History: denies. Mental Status Exam - Mental Status Exam Alert and Oriented to: Time, Place, Person Cognitive Function: Good Patient Appearance: Well Groomed Mood: Euthymic Affect: Mood Congruent Patient Behavior: Appropriate, Cooperative Speech Pattern: Appropriate Voice Loudness: Normal Thought Process: Intact Thought Disorder: Not Present Hallucinations: Denies Suicidal Ideation: Denies Homicidal Ideation: Denies Insight/Judgement: Poor Sleep: Poorly Appetite: Fair Muscle strength/Tone: Normal Gait/Station: Normal Psychiatric Findings - Problem List ([place] 1, 2,3) (1) Substance-induced anxiety disorder Current Visit: Yes Status: Acute (2) Alcohol dependence with uncomplicated withdrawal Current Visit: Yes Status: Acute (3) Cocaine dependence, uncomplicated Current Visit: No Status: Chronic - Initial Treatment Plan Initial Treatment Plan: Psychoeducation provided. Detoxification in progress. Will order buspar 5mg BID. Patient is nonadherent with lexapro. Will not restart lexapro at this time.
[2018-04-18 10:09] LABS: HEMATOCRIT 48.5 % (35.4-49); HEMOGLOBIN 15.8 GM/dL (11.7-16.9); MCH 31.2 pg (25.7-33.7); MCHC 32.5 g/dl (32.0-35.9); MEAN CELL VOLUME 95.9 fl (80-96); MEAN PLT VOLUME 9.2 fl (7.5-11.1); PLATELET COUNT 211 K/MM3 (134-434); RBC 5.05 M/mm3 (4.00-5.60); RDW 14.1 % (11.9-15.9); WHITE BLOOD COUNT 6.6 K/mm3 (4.0-10.0)
[2018-04-18 10:19] LABS: ALK PHOS 95 U/L (45-117); ANION GAP 9 MMOL/L (8-16); BILIRUBIN,TOTAL 0.5 mg/dL (0.2-1); BLOOD UREA NITROGEN 8 mg/dL (7-18); CALCIUM 9.1 mg/dL (8.5-10.1); CHLORIDE 106 mmol/L (98-107); CO2 29 mmol/L (21-32); CREATININE 0.9 mg/dL (0.55-1.3); GLUCOSE,RANDOM 83 mg/dL (74-106); POTASSIUM 4.3 mmol/L (3.5-5.1); SGOT/AST 39 U/L (15-37); SGPT/ALT 28 U/L (13-61); SODIUM 145 mmol/L (136-145); TOT PROT 7.6 g/dl (6.4-8.2)
[2018-04-18] MEDS: PANTOPRAZOLE 20 MG TABLET (FP) PO SCH (10:25)
[2018-04-18] MEDS: PRENATAL VITAMINS W/ FOLIC ACID TABLET (FP) PO SCH (10:25)
[2018-04-18] MEDS: busPIRone HCL 5 MG TABLET PO SCH ×2 (11:49→22:16)
--- NOTE | 2018-04-18 13:26 | PN ---
S CIWA - CIWA Score Nausea/Vomitin-Mild Nausea/No Vomiting Muscle Tremors: 3 Anxiety: 2 Agitation: 2 Paroxysmal Sweats: 1-Minimal Palms Moist Orientation: 1-Uncertain about Date Tacttile Disturbances: 1-Very Mild Itch/Numbness Auditory Disturbances: 0-None Visual Disturbances: 0-None Headache: 0-None Present CIWA-Ar Total Score: 11 BHS Progress Note (SOAP) Subjective: sweat tremor anxiety restlessness trouble sleep at night c/o bug bit x 3 weeks ago on right inner upper arm area mild erythema none tender no swell no pain but itching right arm full range of motion Objective: 04/18/18 13:25 Vital Signs Temperature 98.1 F 04/18/18 09:49 Pulse Rate 104 H 04/18/18 09:49 Respiratory Rate 16 04/18/18 09:49 Blood Pressure 132/79 04/18/18 09:49 O2 Sat by Pulse Oximetry (%) Laboratory Last Values WBC 6.6 K/mm3 (4.0-10.0) 04/18/18 05:45 RBC 5.05 M/mm3 (4.00-5.60) 04/18/18 05:45 Hgb 15.8 GM/dL (11.7-16.9) 04/18/18 05:45 Hct 48.5 % (35.4-49) 04/18/18 05:45 MCV 95.9 fl (80-96) 04/18/18 05:45 MCH 31.2 pg (25.7-33.7) 04/18/18 05:45 MCHC 32.5 g/dl (32.0-35.9) 04/18/18 05:45 RDW 14.1 % (11.9-15.9) 04/18/18 05:45 Plt Count 211 K/MM3 (134-434) 04/18/18 05:45 MPV 9.2 fl (7.5-11.1) 04/18/18 05:45 Sodium 145 mmol/L (136-145) 04/18/18 05:45 Potassium 4.3 mmol/L (3.5-5.1) 04/18/18 05:45 Chloride 106 mmol/L (98-107) 04/18/18 05:45 Carbon Dioxide 29 mmol/L (21-32) 04/18/18 05:45 Anion Gap 9 MMOL/L (8-16) 04/18/18 05:45 BUN 8 mg/dL (7-18) 04/18/18 05:45 Creatinine 0.9 mg/dL (0.55-1.3) 04/18/18 05:45 Creat Clearance w eGFR > 60 (>60) 04/18/18 05:45 Random Glucose 83 mg/dL (74-106) 04/18/18 05:45 Calcium 9.1 mg/dL (8.5-10.1) 04/18/18 05:45 Total Bilirubin 0.5 mg/dL (0.2-1) 04/18/18 05:45 AST 39 U/L (15-37) H 04/18/18 05:45 ALT 28 U/L (13-61) 04/18/18 05:45 Alkaline Phosphatase 95 U/L (45-117) 04/18/18 05:45 Total Protein 7.6 g/dl (6.4-8.2) 04/18/18 05:45 Albumin 4.0 g/dl (3.4-5.0) 04/18/18 05:45 Urine Color Yellow 04/17/18 19:30 Urine Appearance Clear 04/17/18 19:30 Urine pH 7.0 (5.0-8.0) 04/17/18 19:30 Ur Specific [place] 1.008 (1.010-1.035) L 04/17/18 19:30 Urine Protein Negative (NEGATIVE) 04/17/18 19:30 Urine Glucose (UA) Negative (NEGATIVE) 04/17/18 19:30 Urine Ketones Negative (NEGATIVE) 04/17/18 19:30 Urine Blood 1+ (NEGATIVE) H 04/17/18 19:30 Urine Nitrite Negative (NEGATIVE) 04/17/18 19:30 Urine Bilirubin Negative (<2.0 mg/dL) 04/17/18 19:30 Urine Urobilinogen 4.0 e.u/dl mg/dL (0.2-1.0) 04/17/18 19:30 Ur Leukocyte Esterase Negative (NEGATIVE) 04/17/18 19:30 Urine WBC (Auto) <1 /hpf (3-5) 04/17/18 19:30 Urine RBC (Auto) <1 /hpf (0-3) 04/17/18 19:30 Urine Mucus Rare 04/17/18 19:30 RPR Titer Nonreactive (NONREACTIVE) 04/18/18 05:45 lab noted Assessment: 04/18/18 13:25 withdrawal sx Plan: continue detox
[2018-04-18] MEDS ORDERED: BACITRACIN 0.9 GM PACKET TP ONE (13:55)
[2018-04-18] MEDS ORDERED: BACLOFEN 10 MG TABLET (FP) PO ONE (13:55)
--- NOTE | 2018-04-18 16:08 | EKG ---
Test Reason : Blood Pressure : / mmHG Vent. Rate : 106 BPM Atrial Rate : 106 BPM P-R Int : 152 ms QRS Dur : 080 ms QT Int : 326 ms P-R-T Axes : 082 084 068 degrees QTc Int : 433 ms SINUS TACHYCARDIA POSSIBLE LEFT ATRIAL ENLARGEMENT BORDERLINE ECG WHEN COMPARED WITH ECG OF 13-OCT-2017 13:51, NO SIGNIFICANT CHANGE WAS FOUND Confirmed by MD CHICO, OTILIO ([id number]) on 04/18/2018 4:08:34 PM Referred By: Confirmed By:OTILIO GOLDEN MD
[2018-04-18] MEDS: MELATONIN 5 MG TABLETS PO PRN (22:13)
[2018-04-18] MEDS: THIAMINE HCL 100 MG TABLET (FP) PO SCH (22:13)
[2018-04-19] MEDS: chlordiazePOXIDE HCL 25 MG CAPSULE PO SCH ×2 (05:43→10:34)
[2018-04-19] MEDS: GABAPENTIN 300 MG CAPSULE (FP) PO SCH ×3 (05:43→22:52)
[2018-04-19] MEDS: PRENATAL VITAMINS W/ FOLIC ACID TABLET (FP) PO SCH (10:34)
[2018-04-19] MEDS: busPIRone HCL 5 MG TABLET PO SCH ×2 (10:34→22:52)
[2018-04-19] MEDS: PANTOPRAZOLE 20 MG TABLET (FP) PO SCH (10:34)
--- NOTE | 2018-04-19 11:30 | PN ---
[facility] CIWA - CIWA Score Nausea/Vomitin-No Nausea/No Vomiting Muscle Tremors: 2 Anxiety: 1-Mildly Anxious Agitation: 1-Slight > Activity Paroxysmal Sweats: 1-Minimal Palms Moist Orientation: 1-Uncertain about Date Tacttile Disturbances: 0-None Auditory Disturbances: 0-None Visual Disturbances: 0-None Headache: 1-Very Mild CIWA-Ar Total Score: 7 S Progress Note (SOAP) Subjective: sweat tremor restlessness anxiety irritable Objective: 04/19/18 11:29 Vital Signs Temperature 95.9 F L 04/19/18 09:32 Pulse Rate 91 H 04/19/18 09:32 Respiratory Rate 16 04/19/18 09:32 Blood Pressure 120/74 04/19/18 09:32 O2 Sat by Pulse Oximetry (%) Laboratory Last Values WBC 6.6 K/mm3 (4.0-10.0) 04/18/18 05:45 RBC 5.05 M/mm3 (4.00-5.60) 04/18/18 05:45 Hgb 15.8 GM/dL (11.7-16.9) 04/18/18 05:45 Hct 48.5 % (35.4-49) 04/18/18 05:45 MCV 95.9 fl (80-96) 04/18/18 05:45 MCH 31.2 pg (25.7-33.7) 04/18/18 05:45 MCHC 32.5 g/dl (32.0-35.9) 04/18/18 05:45 RDW 14.1 % (11.9-15.9) 04/18/18 05:45 Plt Count 211 K/MM3 (134-434) 04/18/18 05:45 MPV 9.2 fl (7.5-11.1) 04/18/18 05:45 Sodium 145 mmol/L (136-145) 04/18/18 05:45 Potassium 4.3 mmol/L (3.5-5.1) 04/18/18 05:45 Chloride 106 mmol/L (98-107) 04/18/18 05:45 Carbon Dioxide 29 mmol/L (21-32) 04/18/18 05:45 Anion Gap 9 MMOL/L (8-16) 04/18/18 05:45 BUN 8 mg/dL (7-18) 04/18/18 05:45 Creatinine 0.9 mg/dL (0.55-1.3) 04/18/18 05:45 Creat Clearance w eGFR > 60 (>60) 04/18/18 05:45 Random Glucose 83 mg/dL (74-106) 04/18/18 05:45 Calcium 9.1 mg/dL (8.5-10.1) 04/18/18 05:45 Total Bilirubin 0.5 mg/dL (0.2-1) 04/18/18 05:45 AST 39 U/L (15-37) H 04/18/18 05:45 ALT 28 U/L (13-61) 04/18/18 05:45 Alkaline Phosphatase 95 U/L (45-117) 04/18/18 05:45 Total Protein 7.6 g/dl (6.4-8.2) 04/18/18 05:45 Albumin 4.0 g/dl (3.4-5.0) 04/18/18 05:45 Urine Color Yellow 04/17/18 19:30 Urine Appearance Clear 04/17/18 19:30 Urine pH 7.0 (5.0-8.0) 04/17/18 19:30 Ur Specific [place] 1.008 (1.010-1.035) L 04/17/18 19:30 Urine Protein Negative (NEGATIVE) 04/17/18 19:30 Urine Glucose (UA) Negative (NEGATIVE) 04/17/18 19:30 Urine Ketones Negative (NEGATIVE) 04/17/18 19:30 Urine Blood 1+ (NEGATIVE) H 04/17/18 19:30 Urine Nitrite Negative (NEGATIVE) 04/17/18 19:30 Urine Bilirubin Negative (<2.0 mg/dL) 04/17/18 19:30 Urine Urobilinogen 4.0 e.u/dl mg/dL (0.2-1.0) 04/17/18 19:30 Ur Leukocyte Esterase Negative (NEGATIVE) 04/17/18 19:30 Urine WBC (Auto) <1 /hpf (3-5) 04/17/18 19:30 Urine RBC (Auto) <1 /hpf (0-3) 04/17/18 19:30 Urine Mucus Rare 04/17/18 19:30 RPR Titer Nonreactive (NONREACTIVE) 04/18/18 05:45 lab noted Assessment: 04/19/18 11:30 withdrawal sx Plan: continue detox
[2018-04-19] MEDS: chlordiazePOXIDE 5 MG CAPSULE PO SCH ×2 (17:22→22:51)
[2018-04-19] MEDS: MELATONIN 5 MG TABLETS PO PRN (22:52)
[2018-04-19] MEDS: THIAMINE HCL 100 MG TABLET (FP) PO SCH (22:55)
[2018-04-20] MEDS: chlordiazePOXIDE 5 MG CAPSULE PO SCH ×2 (05:55→10:05)
[2018-04-20] MEDS: GABAPENTIN 300 MG CAPSULE (FP) PO SCH ×3 (05:55→22:01)
[2018-04-20] MEDS: PANTOPRAZOLE 20 MG TABLET (FP) PO SCH (10:05)
[2018-04-20] MEDS: PRENATAL VITAMINS W/ FOLIC ACID TABLET (FP) PO SCH (10:05)
[2018-04-20] MEDS: busPIRone HCL 5 MG TABLET PO SCH ×2 (10:05→22:01)
--- NOTE | 2018-04-20 14:49 | PN ---
BHS Progress Note (SOAP) Subjective: feeling better no tremor less sweat no gi distress sleep better at night Objective: 04/20/18 14:48 Vital Signs Temperature 98.1 F 04/20/18 13:04 Pulse Rate 88 04/20/18 13:04 Respiratory Rate 18 04/20/18 13:04 Blood Pressure 108/72 04/20/18 13:04 O2 Sat by Pulse Oximetry (%) Laboratory Last Values WBC 6.6 K/mm3 (4.0-10.0) 04/18/18 05:45 RBC 5.05 M/mm3 (4.00-5.60) 04/18/18 05:45 Hgb 15.8 GM/dL (11.7-16.9) 04/18/18 05:45 Hct 48.5 % (35.4-49) 04/18/18 05:45 MCV 95.9 fl (80-96) 04/18/18 05:45 MCH 31.2 pg (25.7-33.7) 04/18/18 05:45 MCHC 32.5 g/dl (32.0-35.9) 04/18/18 05:45 RDW 14.1 % (11.9-15.9) 04/18/18 05:45 Plt Count 211 K/MM3 (134-434) 04/18/18 05:45 MPV 9.2 fl (7.5-11.1) 04/18/18 05:45 Sodium 145 mmol/L (136-145) 04/18/18 05:45 Potassium 4.3 mmol/L (3.5-5.1) 04/18/18 05:45 Chloride 106 mmol/L (98-107) 04/18/18 05:45 Carbon Dioxide 29 mmol/L (21-32) 04/18/18 05:45 Anion Gap 9 MMOL/L (8-16) 04/18/18 05:45 BUN 8 mg/dL (7-18) 04/18/18 05:45 Creatinine 0.9 mg/dL (0.55-1.3) 04/18/18 05:45 Creat Clearance w eGFR > 60 (>60) 04/18/18 05:45 Random Glucose 83 mg/dL (74-106) 04/18/18 05:45 Calcium 9.1 mg/dL (8.5-10.1) 04/18/18 05:45 Total Bilirubin 0.5 mg/dL (0.2-1) 04/18/18 05:45 AST 39 U/L (15-37) H 04/18/18 05:45 ALT 28 U/L (13-61) 04/18/18 05:45 Alkaline Phosphatase 95 U/L (45-117) 04/18/18 05:45 Total Protein 7.6 g/dl (6.4-8.2) 04/18/18 05:45 Albumin 4.0 g/dl (3.4-5.0) 04/18/18 05:45 Urine Color Yellow 04/17/18 19: Urine Appearance Clear 04/17/18 19:30 Urine pH 7.0 (5.0-8.0) 04/17/18 19:30 Ur Specific [place] 1.008 (1.010-1.035) L 04/17/18 19:30 Urine Protein Negative (NEGATIVE) 04/17/18 19:30 Urine Glucose (UA) Negative (NEGATIVE) 04/17/18 19:30 Urine Ketones Negative (NEGATIVE) 04/17/18 19:30 Urine Blood 1+ (NEGATIVE) H 04/17/18 19:30 Urine Nitrite Negative (NEGATIVE) 04/17/18 19:30 Urine Bilirubin Negative (<2.0 mg/dL) 04/17/18 19:30 Urine Urobilinogen 4.0 e.u/dl mg/dL (0.2-1.0) 04/17/18 19:30 Ur Leukocyte Esterase Negative (NEGATIVE) 04/17/18 19:30 Urine WBC (Auto) <1 /hpf (3-5) 04/17/18 19:30 Urine RBC (Auto) <1 /hpf (0-3) 04/17/18 19:30 Urine Mucus Rare 04/17/18 19:30 RPR Titer Nonreactive (NONREACTIVE) 04/18/18 05:45 lab noted Assessment: 04/20/18 14:49 mild withdrawal sx Plan: medically supervised detox
[2018-04-20] MEDS: chlordiazePOXIDE HCL 10 MG CAPSULE PO SCH ×2 (17:41→22:01)
[2018-04-20] MEDS: THIAMINE HCL 100 MG TABLET (FP) PO SCH (22:02)
[2018-04-21] MEDS: chlordiazePOXIDE HCL 10 MG CAPSULE PO SCH (05:57)
[2018-04-21] MEDS: GABAPENTIN 300 MG CAPSULE (FP) PO SCH (05:57)
[2018-04-21 06:08] VITALS: BP 114/66; PULSE 89; TEMP 98.2
[2018-04-21] MEDS: PRENATAL VITAMINS W/ FOLIC ACID TABLET (FP) PO SCH (09:07)
[2018-04-21] MEDS: PANTOPRAZOLE 20 MG TABLET (FP) PO SCH (09:07)
== END 2018-04-21 09:23 | disposition home or self-care (01) | DRG 774 ==
LOC: YASAS 11:38 → Y6N 15:15
PROC: HZ2ZZZZ Detoxification Services for Substance Abuse Treatment (ICD-10-PCS; principal; 2018-04-17)
DX: F10.230 Alcohol dependence with withdrawal, uncomplicated (principal); F14.20 Cocaine dependence, uncomplicated; F19.280 Other psychoactive substance dependence with psychoactive substance-induced anxiety disorder; F51.05 Insomnia due to other mental disorder; R63.4 Abnormal weight loss; Z68.23 Body mass index [BMI] 23.0-23.9, adult; Z86.19 Personal history of other infectious and parasitic diseases; S22.41XD Multiple fractures of ribs, right side, subsequent encounter for fracture with routine healing; X58.XXXD Exposure to other specified factors, subsequent encounter
CPT/HCPCS: 36415; 80053; 81003; 81015; 85027; 86593; 93005; 93010; J0475

== ENCOUNTER 2019-02-13 12:35 | Inpatient (IN) | payer OTHER ==
[2019-02-13 13:55] VITALS: BMI 22.4
--- NOTE | 2019-02-13 14:51 | HP ---
CIWA Score Nausea/Vomitin-No Nausea/No Vomiting Muscle Tremors: 1-None Visible, but [place] Anxiety: 2 Agitation: 3 Paroxysmal Sweats: No Perspiration Orientation: 0-Oriented Tacttile Disturbances: 2-Mild Itch/Numbness/Burn Auditory Disturbances: 2-Mild Harshness/Frighten Visual Disturbances: 0-None Headache: 3-Moderate CIWA-Ar Total Score: 13 - Admission Criteria [facility] Guidelines: Admission for Medically Managed Detox: Requires at least one of the followin. CIWA greater than 12 2. Seizures within the past 24 hours 3. Delirium tremens within the past 24 hours 4. Hallucinations within the past 24 hours 5. Acute intervention needed for co occurring medical disorder 6. Acute intervention needed for co occurring psychiatric disorder 7. Severe withdrawal that cannot be handled at a lower level of care (continued vomiting, continued diarrhea, abnormal vital signs) requiring intravenous medication and/or fluids 8. Admission ROS [facility] Chief Complaint: alcohol detox Allergies/Adverse Reactions: Allergies Allergy/AdvReac Type Severity Reaction Status Date / Time No Known Drug Allergies Allergy Verified 02/13/19 13:40 History of Present Illness: Patient is a 63 yo M with a PMHx of PE (2018), anxiety, depression, presenting for alcohol detox. Has been drinking since he was 14. Drinks a quart of essence/beer a day. Last drink this morning. No hx of seizures. Blacked out many times. Has been in and out of detox in the past. He was here on 02/10 but was discharged after walking out of the building. Crack/cocaine once or twice a week. Socially uses marijuana. Unemployed. Lives in an apartment with his . Smokes cigarettes but says it varies from day to day. - Ebola screening Have you traveled outside of the country in the last 21 days: No Have you had contact with anyone from an Ebola affected area: No Do you have a fever: No - Review of Systems Constitutional: Loss of Appetite, Unintentional Wgt. Loss Respiratory: reports: Cough. denies: Shortness of Breath Cardiac: denies: Chest Pain, Palpitations GI: reports: No Symptoms Reported Neuro: reports: Headache Patient History - Patient Medical History Hx Anemia: No Hx Asthma: No Hx Chronic Obstructive Pulmonary Disease (COPD): No Hx Cancer: No Hx Cardiac Disorders: No Hx Congestive Heart Failure: No Hx Hypertension: No Hx Hypercholesterolemia: No Hx Pacemaker: No HX Cerebrovascular Accident: No Hx Seizures: No Hx Dementia: No Hx Diabetes: No Hx Gastrointestinal Disorders: No Hx Liver Disease: No Hx Genitourinary Disorders: No Hx Sexually Transmitted Disorders: Yes (1982- GONORRHEA & Syphillis in 1973) Hx Renal Disease (ESRD): No Hx Thyroid Disease: No Hx Human Immunodeficiency Virus (HIV): No (last 06/05 negative) Hx Hepatitis C: No Hx Depression: Yes (anxiety) Hx Suicide Attempt: No Hx Bipolar Disorder: No Hx Schizophrenia: No - Patient Surgical History Past Surgical History: Yes Hx Neurologic Surgery: No Hx Cataract Extraction: No Hx Cardiac Surgery: No Hx Lung Surgery: No Hx Breast Surgery: No Hx Breast Biopsy: No Hx Abdominal Surgery: No Hx Appendectomy: No Hx Cholecystectomy: No Hx Genitourinary Surgery: No Hx Section: No Hx Orthopedic Surgery: No Other Surgical History: RT Testicular hernia repair 1992 Anesthesia Reaction: No - PPD History Date: 10/15/17 Results: NEGATIVE - Smoking Cessation Smoking history: Current every day smoker Have you smoked in the past 12 months: Yes Aproximately how many cigarettes per day: 10 Cigars Per Day: 0 Hx Chewing Tobacco Use: No Initiated information on smoking cessation: Yes 'Breaking Loose' booklet given: 02/13/19 - Substances abused Alcohol Substance route: Oral Frequency: Daily Amount used: 12 shots bella Age of first use: 8 Date of last use: 02/13/19 Crack Substance route: Smoking Frequency: 1-2 times per week Amount used: $5 Age of first use: 32 Date of last use: 02/12/19 Family Disease History - Family Disease History Family Disease History: Other: Father (no contact) Admission Physical Exam BHS - Vital Signs Vital Signs: Vital Signs - 24 hr 02/13/19 13:35 Temperature 97.4 F L Pulse Rate 90 Respiratory 18 Rate Blood Pressure 101/65 - Physical General Appearance: Yes: No Apparent Distress Respiratory: Yes: No Respiratory Distress, No Accessory Muscle Use Cardiology: Yes: Regular Rhythm, Regular Rate Abdominal: Yes: Non Tender, Soft Neurological: Yes: Alert, Motor Strength 5/5 - Diagnostic (1) Cocaine abuse Current Visit: Yes Status: Acute (2) Alcohol dependence with uncomplicated withdrawal Current Visit: No Status: Acute (3) Nicotine dependence Current Visit: No Status: Acute Qualifiers: Nicotine product type: cigarettes Substance use status: in withdrawal Qualified Code(s): F17.213 - Nicotine dependence, cigarettes, with withdrawal (4) Substance-induced anxiety disorder Current Visit: No Status: Acute (5) Weight loss Current Visit: No Status: Acute (6) MDD (major depressive disorder) Current Visit: No Status: Chronic Comment: Self reports. Cleared for Admission BHS - Detox or Rehab S Level of Care: Medically Managed Inpatient Rehab Admission - Rehab Decision to Admit Inpatient rehab admission?: No
[2019-02-13] MEDS ORDERED: hydrOXYzine PAMOATE 25 MG CAPSULE (FP) PO PRN (15:01)
[2019-02-13] MEDS ORDERED: MAGNESIUM CITRATE 300 ML BOTTLE PO PRN (15:01)
[2019-02-13] MEDS ORDERED: MAGNESIUM HYDROX 2400MG/30ML ORAL SUSPENSION 30 ML CUP PO PRN (15:01)
[2019-02-13] MEDS ORDERED: chlordiazePOXIDE HCL 25 MG CAPSULE PO PRN (15:01)
[2019-02-13] MEDS ORDERED: BISMUTH SUBSALICYLATE 262 MG/15 ML BTL PO PRN (15:01)
[2019-02-13] MEDS ORDERED: ACETAMINOPHEN 325 MG TABLET (FP) PO PRN (15:01)
[2019-02-13] MEDS ORDERED: PNEUMOC 13-VAL CONJ-DIP CRM/PF 0.5 ML DISP.SYRIN IM ONE (15:33)
--- NOTE | 2019-02-13 15:39 | PN ---
Teaching Attending Note Name of Resident: Alyson Vo ATTENDING PHYSICIAN STATEMENT I saw and evaluated the patient. I reviewed the resident's note and discussed the case with the resident. I agree with the resident's findings and plan as documented. SUBJECTIVE: Agree with subjective findings OBJECTIVE: Agree with objective findings ASSESSMENT AND PLAN: Agree with plan and treatment.
[2019-02-13] MEDS: chlordiazePOXIDE HCL 25 MG CAPSULE PO SCH ×2 (16:51→22:14)
[2019-02-13 18:17] LABS: HEMATOCRIT 45.6 % (35.4-49); HEMOGLOBIN 15.5 GM/dL (11.7-16.9); MCH 33.4 pg (25.7-33.7); MCHC 34.1 g/dl (32.0-35.9); MEAN PLT VOLUME 8.6 fl (7.5-11.1); PLATELET COUNT 242 K/MM3 (134-434); RBC 4.66 M/mm3 (4.00-5.60)
[2019-02-13 18:26] LABS: ALBUMIN 4.1 g/dl (3.4-5.0); BILIRUBIN,TOTAL 0.9 mg/dL (0.2-1); BLOOD UREA NITROGEN 9.2 mg/dL (7-18); CALCIUM 9.4 mg/dL (8.5-10.1); CREATININE 0.9 mg/dL (0.55-1.3); TOT PROT 7.6 g/dl (6.4-8.2)
[2019-02-13] MEDS: THIAMINE HCL 100 MG TABLET (FP) PO SCH (22:14)
[2019-02-14] MEDS: chlordiazePOXIDE HCL 25 MG CAPSULE PO SCH ×4 (05:13→22:01)
[2019-02-14] MEDS: ACETAMINOPHEN 325 MG TABLET (FP) PO PRN (05:15)
[2019-02-14] MEDS ORDERED: ALBUTEROL SO4 8 GM HFA INHALER IH PRN (09:16)
[2019-02-14] MEDS: BUDESONIDE/FORMETEROL FUMARATE 80/4.5 mcg INHALER IH SCH ×2 (10:05→22:01)
[2019-02-14] MEDS: PRENATAL VITAMINS W/ FOLIC ACID TABLET (FP) PO SCH (10:06)
[2019-02-14] MEDS: MENTHOL/PHENOL 1 EACH UD MM PRN (10:08)
[2019-02-14] MEDS ORDERED: PNEUMOCOCCAL 23 VACCINE 0.5 ML VIAL IM ONE (12:00)
--- NOTE | 2019-02-14 12:57 | PN ---
S CIWA - CIWA Score Nausea/Vomitin Muscle Tremors: 2 Anxiety: 2 Agitation: 3 Paroxysmal Sweats: 1-Minimal Palms Moist Orientation: 0-Oriented Tacttile Disturbances: 0-None Auditory Disturbances: 0-None Visual Disturbances: 0-None Headache: 2-Mild CIWA-Ar Total Score: 12 S Progress Note (SOAP) Subjective: alert,irritable,anxious,interrupted sleep,tremor Objective: 02/14/19 12:54 Vital Signs Temperature 96.8 F L 02/14/19 09:02 Pulse Rate 75 02/14/19 09:02 Respiratory Rate 16 02/14/19 09:02 Blood Pressure 120/74 02/14/19 09:02 O2 Sat by Pulse Oximetry (%) Laboratory Last Values WBC 5.0 K/mm3 (4.0-10.0) 02/13/19 15:00 RBC 4.66 M/mm3 (4.00-5.60) 02/13/19 15:00 Hgb 15.5 GM/dL (11.7-16.9) 02/13/19 15:00 Hct 45.6 % (35.4-49) 02/13/19 15:00 MCV 98.0 fl (80-96) H 02/13/19 15:00 MCH 33.4 pg (25.7-33.7) 02/13/19 15:00 MCHC 34.1 g/dl (32.0-35.9) 02/13/19 15:00 RDW 13.0 % (11.9-15.9) 02/13/19 15:00 Plt Count 242 K/MM3 (134-434) 02/13/19 15:00 MPV 8.6 fl (7.5-11.1) 02/13/19 15:00 Sodium 142 mmol/L (136-145) 02/13/19 15:00 Potassium 4.0 mmol/L (3.5-5.1) 02/13/19 15:00 Chloride 104 mmol/L (98-107) 02/13/19 15:00 Carbon Dioxide 30 mmol/L (21-32) 02/13/19 15:00 Anion Gap 8 MMOL/L (8-16) 02/13/19 15:00 BUN 9.2 mg/dL (7-18) 02/13/19 15:00 Creatinine 0.9 mg/dL (0.55-1.3) 02/13/19 15:00 Est GFR (CKD-EPI)AfAm 106.46 02/13/19 15:00 Est GFR (CKD-EPI)NonAf 91.86 02/13/19 15:00 Random Glucose 93 mg/dL (74-106) 02/13/19 15:00 Calcium 9.4 mg/dL (8.5-10.1) 02/13/19 15:00 Total Bilirubin 0.9 mg/dL (0.2-1) 02/13/19 15:00 AST 30 U/L (15-37) 02/13/19 15:00 ALT 26 U/L (13-61) 02/13/19 15:00 Alkaline Phosphatase 63 U/L (45-117) 02/13/19 15:00 Total Protein 7.6 g/dl (6.4-8.2) 02/13/19 15:00 Albumin 4.1 g/dl (3.4-5.0) 02/13/19 15:00 HIV 1&2 Antibody Screen Cancelled 02/13/19 15:00 HIV P24 Antigen Cancelled 02/13/19 15:00 02/14/19 12:55 hiv test pending Assessment: 02/14/19 12:56 withdrawal symptom Plan: continue detox librium regimen
--- NOTE | 2019-02-14 16:06 | CONSULT ---
[facility] Psychiatric Consult - Data Date of interview: 02/14/19 Admission source: [facility] Identifying data: Patient is approached, at bedside, by the Psychiatry team (MD + medical students) for the requested consultation. Mr Cunningham declines to answer questions.
[2019-02-14] MEDS: MAG HYDROX/AL HYDROX/SIMETH 30 ML UNIT-DOSE CUP PO PRN (17:37)
[2019-02-14] MEDS: MELATONIN 5 MG TABLETS PO PRN (22:01)
[2019-02-14] MEDS: THIAMINE HCL 100 MG TABLET (FP) PO SCH (22:01)
[2019-02-15] MEDS: chlordiazePOXIDE HCL 25 MG CAPSULE PO SCH ×4 (05:54→22:20)
[2019-02-15] MEDS: MENTHOL/PHENOL 1 EACH UD MM PRN ×2 (05:57→14:42)
[2019-02-15] MEDS: BUDESONIDE/FORMETEROL FUMARATE 80/4.5 mcg INHALER IH SCH ×2 (10:33→22:20)
[2019-02-15] MEDS: PRENATAL VITAMINS W/ FOLIC ACID TABLET (FP) PO SCH (10:33)
--- NOTE | 2019-02-15 15:27 | PN ---
[facility] CIWA - CIWA Score Nausea/Vomitin-No Nausea/No Vomiting Muscle Tremors: 2 Anxiety: 3 Agitation: 2 Paroxysmal Sweats: 2 Orientation: 0-Oriented Tacttile Disturbances: 0-None Auditory Disturbances: 0-None Visual Disturbances: 0-None Headache: 0-None Present CIWA-Ar Total Score: 9 S Progress Note (SOAP) Subjective: doing well with librium detox regimen seen by psychiatrist but due to refused to carry out conversation with the psychiatrist requests hepatitis c and hiv testing but refused blood to be drawn Objective: 02/15/19 15:41 Vital Signs Temperature 97.0 F L 02/15/19 13:18 Pulse Rate 83 02/15/19 13:18 Respiratory Rate 20 02/15/19 13:18 Blood Pressure 102/68 02/15/19 13:18 O2 Sat by Pulse Oximetry (%) Laboratory Last Values WBC 5.0 K/mm3 (4.0-10.0) 02/13/19 15:00 RBC 4.66 M/mm3 (4.00-5.60) 02/13/19 15:00 Hgb 15.5 GM/dL (11.7-16.9) 02/13/19 15:00 Hct 45.6 % (35.4-49) 02/13/19 15:00 MCV 98.0 fl (80-96) H 02/13/19 15:00 MCH 33.4 pg (25.7-33.7) 02/13/19 15:00 MCHC 34.1 g/dl (32.0-35.9) 02/13/19 15:00 RDW 13.0 % (11.9-15.9) 02/13/19 15:00 Plt Count 242 K/MM3 (134-434) 02/13/19 15:00 MPV 8.6 fl (7.5-11.1) 02/13/19 15:00 Sodium 142 mmol/L (136-145) 02/13/19 15:00 Potassium 4.0 mmol/L (3.5-5.1) 02/13/19 15:00 Chloride 104 mmol/L (98-107) 02/13/19 15:00 Carbon Dioxide 30 mmol/L (21-32) 02/13/19 15:00 Anion Gap 8 MMOL/L (8-16) 02/13/19 15:00 BUN 9.2 mg/dL (7-18) 02/13/19 15:00 Creatinine 0.9 mg/dL (0.55-1.3) 02/13/19 15:00 Est GFR (CKD-EPI)AfAm 106.46 02/13/19 15:00 Est GFR (CKD-EPI)NonAf 91.86 02/13/19 15:00 Random Glucose 93 mg/dL (74-106) 02/13/19 15:00 Calcium 9.4 mg/dL (8.5-10.1) 02/13/19 15:00 Total Bilirubin 0.9 mg/dL (0.2-1) 02/13/19 15:00 AST 30 U/L (15-37) 02/13/19 15:00 ALT 26 U/L (13-61) 02/13/19 15:00 Alkaline Phosphatase 63 U/L (45-117) 02/13/19 15:00 Total Protein 7.6 g/dl (6.4-8.2) 02/13/19 15:00 Albumin 4.1 g/dl (3.4-5.0) 02/13/19 15:00 RPR Titer Nonreactive (NONREACTIVE) 02/13/19 15:00 HIV 1&2 Ag/Ab, 4th Gen Non reactive (Non Reactive) 02/13/19 15:00 HIV 1&2 Antibody Screen Cancelled 02/13/19 15:00 HIV P24 Antigen Cancelled 02/13/19 15:00 lab noted Assessment: 02/15/19 15:41 alcohol withdrawal sx alert oriented x 3 steady gait speech clearly Plan: continue librium detox regimen
[2019-02-15] MEDS: THIAMINE HCL 100 MG TABLET (FP) PO SCH (22:20)
[2019-02-15] MEDS: MELATONIN 5 MG TABLETS PO PRN (22:22)
[2019-02-16] MEDS ORDERED: chlordiazePOXIDE HCL 10 MG CAPSULE PO PRN
[2019-02-16] MEDS: chlordiazePOXIDE HCL 10 MG CAPSULE PO SCH ×4 (06:01→22:00)
[2019-02-16] MEDS: BUDESONIDE/FORMETEROL FUMARATE 80/4.5 mcg INHALER IH SCH ×2 (10:22→22:00)
[2019-02-16] MEDS: PRENATAL VITAMINS W/ FOLIC ACID TABLET (FP) PO SCH (10:22)
[2019-02-16] MEDS: MAG HYDROX/AL HYDROX/SIMETH 30 ML UNIT-DOSE CUP PO PRN (11:13)
--- NOTE | 2019-02-16 12:14 | PN ---
[facility] CIWA - CIWA Score Nausea/Vomitin-Mild Nausea/No Vomiting Muscle Tremors: 1-None Visible, but [place] Anxiety: 2 Agitation: 2 Paroxysmal Sweats: No Perspiration Orientation: 0-Oriented Tacttile Disturbances: 0-None Auditory Disturbances: 0-None Visual Disturbances: 0-None Headache: 2-Mild CIWA-Ar Total Score: 8 S Progress Note (SOAP) Subjective: alert,irritable,anxious,interrupted sleep, Objective: 02/16/19 12:13 Vital Signs Temperature 96.8 F L 02/16/19 09:37 Pulse Rate 77 02/16/19 09:37 Respiratory Rate 18 02/16/19 09:37 Blood Pressure 109/73 02/16/19 09:37 O2 Sat by Pulse Oximetry (%) Assessment: 02/16/19 12:13 withdrawal symptom Plan: continue detox librium regimen
--- NOTE | 2019-02-16 18:51 | CONSULT ---
[facility] Psychiatric Consult - Data Date of interview: 02/16/19 Admission source: [facility] Identifying data: Readmission to [facility] for this 63 y/o [place] male self -referred for detoxification (alcohol, cocaine, cannabis). Interviewed at [address] [place] [address]. Patient is , a father of one, domiciled, unemployed and supported on SSI benefits. He is a former [employer] (served four years). Discharge status not disclosed by patient. Substance Abuse History: Confirmed by patient in this interview. Detils in current [facility] report as follows : Smoking history: Current every day smoker. Have you smoked in the past 12 months: Yes. Aproximately how many cigarettes per day: 10. Cigars Per Day: 0. Hx Chewing Tobacco Use: No. Initiated information on smoking cessation: Yes. 'Breaking Loose' booklet given: . - Substances abused. Alcohol. Substance route: Oral. Frequency: Daily. Amount used: 12 shots bella. Age of first use: 8. Date of last use: 02/13/19. Crack. Substance route: Smoking. Frequency: 1-2 times per week. Amount used: $5. Age of first use: 32. Date of last use: 02/12/19 Medical History: Medical profile is remarkable for antecedent of pulmonary embolism, herniorraphy, rheumatoid arthritis and a history of treatment for gonorrhea + syphilis. Psychiatric History: No reported history of psychiatric hospitalizations. Patient indicates that he used to be followed at [facility] in the [place]. Diagnosed with Anxiety Disorder. Has dropped out of [facility]PD care for several months but wishes to resume buspirone in this hospital course. Mr Cunningham denies history of suicide attempts. Physical/Sexual Abuse/Trauma History: Patient denies. Additional Comment: No toxicology available for review. Mental Status Exam - Mental Status Exam Alert and Oriented to: Time, Place, Person Cognitive Function: Good Patient Appearance: Well Groomed (tattoos on both upper extremities) Mood: Anxious, Hopeful Affect: Appropriate, Normal Range Patient Behavior: Appropriate, Cooperative Speech Pattern: Clear, Appropriate Voice Loudness: Normal Thought Process: Intact, Goal Oriented Thought Disorder: Not Present Hallucinations: Denies Suicidal Ideation: Denies Homicidal Ideation: Denies Insight/Judgement: Poor Sleep: Well Appetite: Good Muscle strength/Tone: Normal Gait/Station: Normal Psychiatric Findings - Problem List ([place] 1, 2,3) (1) Alcohol dependence with uncomplicated withdrawal Current Visit: Yes Status: Acute (2) Cocaine dependence, uncomplicated Current Visit: Yes Status: Chronic (3) Nicotine dependence Current Visit: Yes Status: Chronic Qualifiers: Nicotine product type: cigarettes Substance use status: in withdrawal Qualified Code(s): F17.213 - Nicotine dependence, cigarettes, with withdrawal (4) Substance induced mood disorder Current Visit: Yes Status: Chronic (5) Anxiety disorder Current Visit: Yes Status: Chronic Comment: As per records. - Initial Treatment Plan Initial Treatment Plan: Psychoeducation. Sleep hygiene. AA meetings. Relapse prevention (MAT) discussed in this session. Patient has been on Antabuse. Recently given vivitrol at a clinic in the community. Detoxification. Groups. Buspar 5 mg po tid. Ordered at patient's specific request. Side effects/ benefits discussed. Mr Cunningham is in agreement with this plan of care. Gave verbal consent to MD. Flanagan.
[2019-02-16] MEDS: busPIRone HCL 10 MG TABLET (FP) PO SCH (21:59)
[2019-02-16] MEDS: THIAMINE HCL 100 MG TABLET (FP) PO SCH (22:00)
[2019-02-17] MEDS: busPIRone HCL 10 MG TABLET (FP) PO SCH ×3 (05:17→21:41)
[2019-02-17] MEDS: chlordiazePOXIDE HCL 10 MG CAPSULE PO SCH ×2 (05:17→17:05)
[2019-02-17] MEDS: METHOCARBAMOL 500 MG TABLET PO PRN (05:20)
[2019-02-17] MEDS: IBUPROFEN 400 MG TABLET (FP) PO PRN (05:20)
[2019-02-17] MEDS: PRENATAL VITAMINS W/ FOLIC ACID TABLET (FP) PO SCH (10:25)
[2019-02-17] MEDS: BUDESONIDE/FORMETEROL FUMARATE 80/4.5 mcg INHALER IH SCH ×2 (10:25→21:41)
[2019-02-17] MEDS: ACETAMINOPHEN 325 MG TABLET (FP) PO PRN (10:26)
--- NOTE | 2019-02-17 14:45 | PN ---
[facility] CIWA - CIWA Score Nausea/Vomitin-No Nausea/No Vomiting Muscle Tremors: 1-None Visible, but [place] Anxiety: 2 Agitation: 2 Paroxysmal Sweats: No Perspiration Orientation: 0-Oriented Tacttile Disturbances: 0-None Auditory Disturbances: 0-None Visual Disturbances: 0-None Headache: 0-None Present CIWA-Ar Total Score: 5 S Progress Note (SOAP) Subjective: Reports detox proceeding well. pt oob ambulating on unit. anticipating completion of detox librium taper in the [facility]. Objective: 02/17/19 14:43 Vital Signs - 24 hr 02/16/19 02/16/19 02/17/19 17:47 21:49 00:30 Temperature 97.8 F 97.3 F L Pulse Rate 83 90 Respiratory 16 18 18 Rate Blood Pressure 101/66 127/84 02/17/19 02/17/19 02/17/19 06:00 09:12 13:37 Temperature 96.9 F L 96.5 F L 97.8 F Pulse Rate 76 73 79 Respiratory 18 18 18 Rate Blood Pressure 100/64 112/72 107/72 Laboratory Tests 02/13/19 02/13/19 02/13/19 15:00 15:00 15:00 WBC 5.0 RBC 4.66 Hgb 15.5 Hct 45.6 MCV 98.0 H MCH 33.4 MCHC 34.1 RDW 13.0 Plt Count 242 MPV 8.6 Sodium 142 Potassium 4.0 Chloride 104 Carbon Dioxide 30 Anion Gap 8 BUN 9.2 Creatinine 0.9 Est GFR (CKD-EPI)AfAm 106.46 Est GFR (CKD-EPI)NonAf 91.86 Random Glucose 93 Calcium 9.4 Total Bilirubin 0.9 AST 30 ALT 26 Alkaline Phosphatase 63 Total Protein 7.6 Albumin 4.1 RPR Titer Nonreactive HIV 1&2 Ag/Ab, 4th Gen HIV 1&2 Antibody Screen HIV P24 Antigen 02/13/19 02/13/19 15:00 15:00 WBC RBC Hgb Hct MCV MCH MCHC RDW Plt Count MPV Sodium Potassium Chloride Carbon Dioxide Anion Gap BUN Creatinine Est GFR (CKD-EPI)AfAm Est GFR (CKD-EPI)NonAf Random Glucose Calcium Total Bilirubin AST ALT Alkaline Phosphatase Total Protein Albumin RPR Titer HIV 1&2 Ag/Ab, 4th Gen Non reactive HIV 1&2 Antibody Screen Cancelled HIV P24 Antigen Cancelled Assessment: 02/17/19 14:43 withdrawal sx Plan: continue detox librium taper increase po fluids May d/c tomorrow. d/w pt to follow up with aftercare.
[2019-02-17] MEDS: THIAMINE HCL 100 MG TABLET (FP) PO SCH (21:41)
[2019-02-17] MEDS: MELATONIN 5 MG TABLETS PO PRN (21:42)
[2019-02-18] MEDS ORDERED: chlordiazePOXIDE HCL 10 MG CAPSULE PO ONE (05:00)
[2019-02-18] MEDS: busPIRone HCL 10 MG TABLET (FP) PO SCH (06:10)
[2019-02-18] MEDS: METHOCARBAMOL 500 MG TABLET PO PRN (06:12)
[2019-02-18] MEDS: IBUPROFEN 400 MG TABLET (FP) PO PRN (06:12)
[2019-02-18 06:19] VITALS: BP 116/71; PULSE 77; TEMP 97
--- NOTE | 2019-02-18 15:16 | DS ---
[facility] Detox Discharge Summary Admission Date: 02/13/19 Discharge Date: 02/18/19 - History Present History: Alcohol Dependence Additional Comments: 63 years old male fifth patient [facility] admission since 2016 was admitted on 02/13/19 for alcohol withdrawal sx management doing well wtih libirum detox regimen no complication through out the detox stay alert orientecd x 3 cardiac S1S2 regular rate rhythm respiratory: clear lung on auscultation abdomen: soft no rebound tenderness - Physical Exam Results Vital Signs: Vital Signs Temperature 97 F L 02/18/19 06:18 Pulse Rate 77 02/18/19 06:18 Respiratory Rate 16 02/18/19 06:18 Blood Pressure 116/71 02/18/19 06:18 O2 Sat by Pulse Oximetry (%) Pertinent Admission Physical Exam Findings: alcohol withdrawal sx - Treatment Hospital Course: Detox Protocol Followed, Detoxed Safely, Responded well, Discharged Condition Good, Rehab Referral Accepted Patient has Accepted a Rehab Referral to: [facility] - Medication Discharge Medications: Ambulatory Orders Gabapentin 600 mg PO TID 10/07/16 Omeprazole Magnesium [Prilosec] 20 mg PO DAILY 10/07/16 Buspirone HCl [Buspar -] 5 mg PO TID 10/13/17 Folic Acid 1 mg PO DAILY 04/17/18 Thiamine HCl [B-1] 100 mg PO DAILY 04/17/18 - Diagnosis (1) Alcohol dependence with uncomplicated withdrawal Status: Acute (2) Weight loss Status: Acute (3) Nicotine dependence Status: Acute Qualifiers: Nicotine product type: cigarettes Substance use status: in withdrawal Qualified Code(s): F17.213 - Nicotine dependence, cigarettes, with withdrawal (4) Substance induced mood disorder Status: Suspected - AMA Did Patient Leave Against Medical Advice: No
== END 2019-02-18 09:20 | disposition home or self-care (01) | DRG 774 ==
LOC: YASAS 12:35 → Y3N 15:11
PROVIDERS: ADMIT Surgery; ATTEND Surgery
PROC: HZ2ZZZZ Detoxification Services for Substance Abuse Treatment (ICD-10-PCS; principal; 2019-02-13)
DX: F10.230 Alcohol dependence with withdrawal, uncomplicated (principal); F14.20 Cocaine dependence, uncomplicated; F17.213 Nicotine dependence, cigarettes, with withdrawal; F19.24 Other psychoactive substance dependence with psychoactive substance-induced mood disorder; F41.9 Anxiety disorder, unspecified; F33.9 Major depressive disorder, recurrent, unspecified; R63.4 Abnormal weight loss; Z68.22 Body mass index [BMI] 22.0-22.9, adult; Z86.711 Personal history of pulmonary embolism; Z86.19 Personal history of other infectious and parasitic diseases
CPT/HCPCS: 36415; 80053; 85027; 86593; 87389; 90732; G0009

== ENCOUNTER 2020-11-08 12:11 | Inpatient (IN) | payer OTHER ==
[2020-11-08 13:33] VITALS: BMI 23.6
[2020-11-08] MEDS ORDERED: MAGNESIUM CITRATE 300 ML BOTTLE PO PRN (14:37)
[2020-11-08] MEDS ORDERED: MAG HYDROX/AL HYDROX/SIMETH 30 ML UNIT-DOSE CUP PO PRN (14:37)
[2020-11-08] MEDS ORDERED: ONDANSETRON *ODT* 4 MG TABLET SL PRN (14:37)
[2020-11-08] MEDS ORDERED: ACETAMINOPHEN 325 MG TABLET (FP) PO PRN ×2 (14:37)
[2020-11-08] MEDS ORDERED: LORazepam 1 MG TABLET PO PRN (14:37)
[2020-11-08] MEDS ORDERED: IBUPROFEN 400 MG TABLET (FP) PO PRN (14:37)
[2020-11-08] MEDS ORDERED: METHOCARBAMOL 500 MG TABLET PO PRN (14:37)
[2020-11-08] MEDS ORDERED: NICOTINE POLACRILEX 2 MG GUM BUC PRN (14:37)
[2020-11-08] MEDS ORDERED: BISMUTH SUBSALICYLATE 524 MG/30 ML PO PRN (14:37)
[2020-11-08] MEDS ORDERED: MAGNESIUM HYDROX 2400MG/30ML ORAL SUSPENSION 30 ML CUP PO PRN (14:37)
[2020-11-08] MEDS ORDERED: MENTHOL/PHENOL 1 EACH UD MM PRN (14:37)
[2020-11-08] MEDS: LORazepam 2 MG TABLET PO SCH ×2 (18:30→22:22)
[2020-11-08] MEDS: hydrOXYzine PAMOATE 25 MG CAPSULE (FP) PO SCH ×2 (18:35→22:22)
[2020-11-08] MEDS: THIAMINE HCL 100 MG TABLET (FP) PO SCH (22:22)
[2020-11-08] MEDS: MELATONIN 5 MG TABLETS PO SCH (22:22)
[2020-11-09] MEDS: hydrOXYzine PAMOATE 25 MG CAPSULE (FP) PO SCH ×5 (06:01→22:35)
[2020-11-09] MEDS: LORazepam 2 MG TABLET PO SCH ×4 (06:03→22:35)
[2020-11-09] MEDS: PRENATAL VITAMINS W/ FOLIC ACID TABLET (FP) PO SCH (10:27)
[2020-11-09] MEDS: NICOTINE 21 MG/24 HOURS TOPICAL PATCH TD SCH (10:29)
[2020-11-09 11:05] LABS: HEMATOCRIT 40.4 % (35.4-49); HEMOGLOBIN 13.9 GM/dL (11.7-16.9); MCH 33.2 pg (25.7-33.7); MCHC 34.5 g/dl (32.0-35.9); MEAN CELL VOLUME 96.3 fl (80-96); MEAN PLT VOLUME 8.6 fl (7.5-11.1); PLATELET COUNT 183 K/MM3 (134-434); RDW 13.1 % (11.9-15.9); WHITE BLOOD COUNT 5.2 K/mm3 (4.0-10.0)
[2020-11-09 11:26] LABS: ALBUMIN 3.7 g/dl (3.4-5.0); BLOOD UREA NITROGEN 7.1 mg/dL (7-18); CALCIUM 8.7 mg/dL (8.5-10.1)
[2020-11-09 11:30] LABS: CREATININE 0.6 mg/dL (0.55-1.3)
[2020-11-09 11:31] LABS: BILIRUBIN,TOTAL 1.2 mg/dL (0.2-1); TOT PROT 7.1 g/dl (6.4-8.2)
[2020-11-09] MEDS: THIAMINE HCL 100 MG TABLET (FP) PO SCH (22:35)
[2020-11-09] MEDS: MELATONIN 5 MG TABLETS PO SCH (22:35)
[2020-11-10] MEDS: LORazepam 1 MG TABLET PO SCH ×4 (05:53→22:26)
[2020-11-10] MEDS: hydrOXYzine PAMOATE 25 MG CAPSULE (FP) PO SCH ×5 (05:53→22:27)
[2020-11-10] MEDS: PRENATAL VITAMINS W/ FOLIC ACID TABLET (FP) PO SCH (10:26)
[2020-11-10] MEDS: NICOTINE 21 MG/24 HOURS TOPICAL PATCH TD SCH (10:26)
[2020-11-10] MEDS ORDERED: MASKS NR ONE (22:24)
[2020-11-10] MEDS: THIAMINE HCL 100 MG TABLET (FP) PO SCH (22:26)
[2020-11-10] MEDS: MELATONIN 5 MG TABLETS PO SCH (22:27)
[2020-11-11] MEDS ORDERED: LORazepam 0.5 MG TABLET PO PRN
[2020-11-11] MEDS: LORazepam 0.5 MG TABLET PO SCH ×4 (05:34→22:29)
[2020-11-11] MEDS: hydrOXYzine PAMOATE 25 MG CAPSULE (FP) PO SCH ×5 (05:34→22:29)
[2020-11-11] MEDS ORDERED: COLLOIDAL OATMEAL 1 BAR EACH TP PRN (09:29)
[2020-11-11] MEDS ORDERED: LIDOCAINE 5% TOPICAL PATCH TP SCH (10:00)
[2020-11-11] MEDS: FAMOTIDINE 20 MG TABLET PO SCH ×2 (10:24→22:29)
[2020-11-11] MEDS: PRENATAL VITAMINS W/ FOLIC ACID TABLET (FP) PO SCH (10:24)
[2020-11-11] MEDS: NICOTINE 21 MG/24 HOURS TOPICAL PATCH TD SCH (10:25)
[2020-11-11] MEDS: MINERAL OIL/PETROLAT/WATER TOPICAL CREAM 113 GM JAR TP SCH ×2 (11:50→22:26)
[2020-11-11] MEDS ORDERED: LIDOCAINE PATCH REMOVAL MC SCH (22:00)
[2020-11-11] MEDS: THIAMINE HCL 100 MG TABLET (FP) PO SCH (22:30)
[2020-11-11] MEDS: MELATONIN 5 MG TABLETS PO SCH (22:30)
[2020-11-12] MEDS ORDERED: LORazepam 0.5 MG TABLET PO ONE (05:00)
[2020-11-12 06:19] VITALS: TEMP 98
[2020-11-12] MEDS: hydrOXYzine PAMOATE 25 MG CAPSULE (FP) PO SCH (06:46)
[2020-11-12 09:43] VITALS: BP 132/80; PULSE 77
== END 2020-11-12 09:30 | disposition home or self-care (01) | DRG 774 ==
LOC: YASAS 12:11 → Y6N 16:42
PROVIDERS: ADMIT Allergy & Immunology; ATTEND Allergy & Immunology
PROC: HZ2ZZZZ Detoxification Services for Substance Abuse Treatment (ICD-10-PCS; principal; 2020-11-08)
DX: F10.230 Alcohol dependence with withdrawal, uncomplicated (principal); F14.20 Cocaine dependence, uncomplicated; F17.210 Nicotine dependence, cigarettes, uncomplicated; F51.05 Insomnia due to other mental disorder; G56.01 Carpal tunnel syndrome, right upper limb; K21.9 Gastro-esophageal reflux disease without esophagitis; M06.9 Rheumatoid arthritis, unspecified; R63.4 Abnormal weight loss; Z68.23 Body mass index [BMI] 23.0-23.9, adult; Z86.19 Personal history of other infectious and parasitic diseases
CPT/HCPCS: 36415; 80053; 85027; 86593; 86780; C9803; U0003; U0005

== ENCOUNTER 2021-02-10 12:55 | Inpatient (IN) | payer OTHER ==
[2021-02-10 18:03] VITALS: BMI 51.3
[2021-02-10] MEDS ORDERED: ACETAMINOPHEN 325 MG TABLET (FP) PO PRN ×2 (18:18)
[2021-02-10] MEDS ORDERED: IBUPROFEN 400 MG TABLET (FP) PO PRN (18:18)
[2021-02-10] MEDS ORDERED: MENTHOL/PHENOL 1 EACH UD MM PRN (18:19)
[2021-02-10] MEDS ORDERED: MAGNESIUM HYDROX 2400MG/30ML ORAL SUSPENSION 30 ML CUP PO PRN (18:19)
[2021-02-10] MEDS ORDERED: METHOCARBAMOL 500 MG TABLET PO PRN (18:19)
[2021-02-10] MEDS ORDERED: ONDANSETRON *ODT* 4 MG TABLET SL PRN (18:19)
[2021-02-10] MEDS ORDERED: MAG HYDROX/AL HYDROX/SIMETH 30 ML UNIT-DOSE CUP PO PRN (18:19)
[2021-02-10] MEDS ORDERED: NICOTINE 10 MG CARTRIDGE (INHALER) IH PRN ×2 (18:20→19:02)
[2021-02-10] MEDS ORDERED: MAGNESIUM CITRATE 300 ML BOTTLE PO PRN (18:20)
[2021-02-10] MEDS ORDERED: LORazepam 1 MG TABLET PO PRN ×2 (18:21→18:24)
[2021-02-10] MEDS ORDERED: LORazepam 0.5 MG TABLET PO PRN (18:21)
[2021-02-10] MEDS ORDERED: LORazepam 0.5 MG TABLET PO SCH (18:30)
[2021-02-10] MEDS ORDERED: THIAMINE HCL 100 MG TABLET (FP) PO SCH (22:00)
[2021-02-10] MEDS ORDERED: MELATONIN 5 MG TABLETS PO SCH (22:00)
[2021-02-10] MEDS: hydrOXYzine PAMOATE 25 MG CAPSULE (FP) PO SCH (22:37)
[2021-02-10] MEDS: THIAMINE HCL 100 MG TABLET (FP) PO SCH (22:37)
[2021-02-10] MEDS: MELATONIN 5 MG TABLETS PO SCH (22:37)
[2021-02-10] MEDS: LORazepam 2 MG TABLET PO SCH (22:38)
[2021-02-10] MEDS ORDERED: LORazepam 1 MG TABLET PO SCH (23:00)
[2021-02-11] MEDS: LORazepam 2 MG TABLET PO SCH ×4 (06:10→22:28)
[2021-02-11] MEDS: hydrOXYzine PAMOATE 25 MG CAPSULE (FP) PO SCH ×2 (06:10→10:13)
[2021-02-11] MEDS: PRENATAL VITAMINS W/ FOLIC ACID TABLET (FP) PO SCH (10:11)
[2021-02-11] MEDS ORDERED: hydrOXYzine PAMOATE 25 MG CAPSULE (FP) PO PRN (10:42)
[2021-02-11] MEDS: BISMUTH SUBSALICYLATE 524 MG/30 ML PO PRN (18:19)
[2021-02-11] MEDS: MELATONIN 5 MG TABLETS PO SCH (22:29)
[2021-02-11] MEDS: THIAMINE HCL 100 MG TABLET (FP) PO SCH (22:29)
[2021-02-12] MEDS: LORazepam 1 MG TABLET PO SCH ×4 (05:43→22:07)
[2021-02-12] MEDS: PRENATAL VITAMINS W/ FOLIC ACID TABLET (FP) PO SCH (10:23)
[2021-02-12] MEDS: BISMUTH SUBSALICYLATE 524 MG/30 ML PO PRN ×2 (10:25→20:06)
[2021-02-12] MEDS: MELATONIN 5 MG TABLETS PO SCH (22:07)
[2021-02-12] MEDS: THIAMINE HCL 100 MG TABLET (FP) PO SCH (22:07)
[2021-02-13] MEDS ORDERED: LORazepam 0.5 MG TABLET PO PRN
[2021-02-13] MEDS: LORazepam 0.5 MG TABLET PO SCH ×2 (05:19→10:31)
[2021-02-13] MEDS: PRENATAL VITAMINS W/ FOLIC ACID TABLET (FP) PO SCH (10:30)
[2021-02-13 17:08] VITALS: BP 116/68; PULSE 80; TEMP 97.5
[2021-02-14] MEDS ORDERED: LORazepam 0.5 MG TABLET PO ONE (05:00)
== END 2021-02-13 17:12 | disposition home or self-care (01) | DRG 774 ==
LOC: YASAS 12:55 → Y3N 18:21
PROVIDERS: ADMIT Allergy & Immunology; ATTEND Allergy & Immunology
PROC: HZ2ZZZZ Detoxification Services for Substance Abuse Treatment (ICD-10-PCS; principal; 2021-02-10)
DX: F10.230 Alcohol dependence with withdrawal, uncomplicated (principal); F14.10 Cocaine abuse, uncomplicated; F17.210 Nicotine dependence, cigarettes, uncomplicated; F19.280 Other psychoactive substance dependence with psychoactive substance-induced anxiety disorder; F19.24 Other psychoactive substance dependence with psychoactive substance-induced mood disorder; F51.05 Insomnia due to other mental disorder; G56.01 Carpal tunnel syndrome, right upper limb; K21.9 Gastro-esophageal reflux disease without esophagitis; M06.9 Rheumatoid arthritis, unspecified
CPT/HCPCS: C9803; Q0162; U0003; U0005

== ENCOUNTER 2021-11-20 12:09 | Inpatient (IN) | payer OTHER ==
[2021-11-20 12:42] VITALS: BMI 22.9
[2021-11-20] MEDS ORDERED: ONDANSETRON *ODT* 4 MG TABLET SL PRN (14:06)
[2021-11-20] MEDS ORDERED: BISMUTH SUBSALICYLATE 262 MG/15 ML BTL PO PRN (14:06)
[2021-11-20] MEDS ORDERED: MAG HYDROX/AL HYDROX/SIMETH 30 ML UNIT-DOSE CUP PO PRN (14:06)
[2021-11-20] MEDS ORDERED: IBUPROFEN 400 MG TABLET (FP) PO PRN (14:06)
[2021-11-20] MEDS ORDERED: chlordiazePOXIDE HCL 25 MG CAPSULE PO PRN (14:06)
[2021-11-20] MEDS ORDERED: IBUPROFEN 600 MG TABLET (FP) PO PRN (14:06)
[2021-11-20] MEDS ORDERED: DICYCLOMINE HCL 10 MG CAPSULE PO PRN (14:06)
[2021-11-20] MEDS ORDERED: MAGNESIUM CITRATE 300 ML BOTTLE PO PRN (14:06)
[2021-11-20] MEDS ORDERED: NICOTINE 10 MG CARTRIDGE (INHALER) IH PRN (14:06)
[2021-11-20] MEDS ORDERED: MAGNESIUM HYDROX 2400MG/30ML ORAL SUSPENSION 30 ML CUP PO PRN (14:06)
[2021-11-20] MEDS ORDERED: BENZOCAINE/MENTHOL (CHLORASEPTIC ) LOZENGE MM PRN (14:06)
[2021-11-20] MEDS ORDERED: ACETAMINOPHEN 325 MG TABLET (FP) PO PRN ×2 (14:06)
[2021-11-20] MEDS ORDERED: LOPERAMIDE HCL 2 MG CAPSULE PO PRN (14:06)
[2021-11-20] MEDS: chlordiazePOXIDE HCL 25 MG CAPSULE PO SCH ×2 (18:15→22:17)
[2021-11-20] MEDS: hydrOXYzine PAMOATE 25 MG CAPSULE (FP) PO SCH ×2 (18:16→22:17)
[2021-11-20] MEDS: MELATONIN 5 MG TABLETS PO SCH (22:17)
[2021-11-20] MEDS: APIXABAN 5 MG TABLET PO SCH (22:17)
[2021-11-20] MEDS: THIAMINE HCL 100 MG TABLET (FP) PO SCH (22:17)
[2021-11-21] MEDS: chlordiazePOXIDE HCL 25 MG CAPSULE PO SCH ×4 (05:39→22:18)
[2021-11-21] MEDS: hydrOXYzine PAMOATE 25 MG CAPSULE (FP) PO SCH ×5 (05:39→22:18)
[2021-11-21] MEDS: PRENATAL VITAMINS W/ FOLIC ACID TABLET (FP) PO SCH ×2 (09:02→10:16)
[2021-11-21] MEDS: APIXABAN 5 MG TABLET PO SCH ×2 (10:16→22:18)
[2021-11-21] MEDS: METHOCARBAMOL 500 MG TABLET PO PRN (10:18)
[2021-11-21 10:55] LABS: HEMATOCRIT 44.2 % (35.4-49); HEMOGLOBIN 14.9 GM/dL (11.7-16.9); MCH 31.7 pg (25.7-33.7); MCHC 33.7 g/dl (32.0-35.9); MEAN CELL VOLUME 94.1 fl (80-96); MEAN PLT VOLUME 8.2 fl (7.5-11.1); PLATELET COUNT 181 10^3/uL (134-434); RDW 14.8 % (11.9-15.9); WHITE BLOOD COUNT 5.1 K/mm3 (4.0-10.0)
[2021-11-21 11:08] LABS: ALBUMIN 3.3 g/dl (3.4-5.0); CALCIUM 8.9 mg/dL (8.5-10.1)
[2021-11-21 11:09] LABS: BLOOD UREA NITROGEN 7.1 mg/dL (7-18)
[2021-11-21 11:11] LABS: CREATININE 0.7 mg/dL (0.55-1.3)
[2021-11-21 11:13] LABS: BILIRUBIN,TOTAL 1.7 mg/dL (0.2-1); TOT PROT 6.4 g/dl (6.4-8.2)
[2021-11-21] MEDS: THIAMINE HCL 100 MG TABLET (FP) PO SCH (22:18)
[2021-11-21] MEDS: MELATONIN 5 MG TABLETS PO SCH (22:18)
[2021-11-22] MEDS: hydrOXYzine PAMOATE 25 MG CAPSULE (FP) PO SCH ×5 (05:42→22:43)
[2021-11-22] MEDS: chlordiazePOXIDE HCL 25 MG CAPSULE PO SCH ×4 (05:42→22:40)
[2021-11-22] MEDS: APIXABAN 5 MG TABLET PO SCH ×2 (11:04→22:40)
[2021-11-22] MEDS: PRENATAL VITAMINS W/ FOLIC ACID TABLET (FP) PO SCH (11:04)
[2021-11-22] MEDS: THIAMINE HCL 100 MG TABLET (FP) PO SCH (22:40)
[2021-11-22] MEDS: MELATONIN 5 MG TABLETS PO SCH (22:43)
[2021-11-23] MEDS ORDERED: chlordiazePOXIDE HCL 10 MG CAPSULE PO PRN
[2021-11-23] MEDS: hydrOXYzine PAMOATE 25 MG CAPSULE (FP) PO SCH ×5 (05:41→22:16)
[2021-11-23] MEDS: chlordiazePOXIDE HCL 10 MG CAPSULE PO SCH ×4 (05:42→22:16)
[2021-11-23] MEDS: APIXABAN 5 MG TABLET PO SCH ×2 (10:07→22:15)
[2021-11-23] MEDS: METHOCARBAMOL 500 MG TABLET PO PRN (10:07)
[2021-11-23] MEDS: PRENATAL VITAMINS W/ FOLIC ACID TABLET (FP) PO SCH (10:07)
[2021-11-23] MEDS: THIAMINE HCL 100 MG TABLET (FP) PO SCH (22:16)
[2021-11-23] MEDS: MELATONIN 5 MG TABLETS PO SCH (22:16)
[2021-11-24] MEDS ORDERED: chlordiazePOXIDE HCL 10 MG CAPSULE PO SCH (05:00)
[2021-11-24] MEDS: hydrOXYzine PAMOATE 25 MG CAPSULE (FP) PO SCH ×2 (05:21→10:08)
[2021-11-24 09:21] VITALS: BP 96/67; PULSE 91; TEMP 97.6
[2021-11-24] MEDS ORDERED: SERTRALINE HCL 50 MG TABLET (FP) PO SCH (10:00)
[2021-11-24] MEDS: PRENATAL VITAMINS W/ FOLIC ACID TABLET (FP) PO SCH (10:08)
[2021-11-24] MEDS: METHOCARBAMOL 500 MG TABLET PO PRN (10:08)
[2021-11-24] MEDS: APIXABAN 5 MG TABLET PO SCH (10:08)
[2021-11-24] MEDS ORDERED: SUVOREXANT 10 MG TABLET PO PRN (22:00)
[2021-11-25] MEDS ORDERED: chlordiazePOXIDE HCL 10 MG CAPSULE PO ONE (05:00)
== END 2021-11-24 12:15 | disposition home or self-care (01) | DRG 774 ==
LOC: YASAS 12:09 → Y6N 15:01
PROVIDERS: ADMIT Allergy & Immunology; ATTEND Surgery
PROC: HZ2ZZZZ Detoxification Services for Substance Abuse Treatment (ICD-10-PCS; principal; 2021-11-20)
DX: F10.230 Alcohol dependence with withdrawal, uncomplicated (principal); F14.10 Cocaine abuse, uncomplicated; F17.213 Nicotine dependence, cigarettes, with withdrawal; F19.280 Other psychoactive substance dependence with psychoactive substance-induced anxiety disorder; F19.24 Other psychoactive substance dependence with psychoactive substance-induced mood disorder; F41.9 Anxiety disorder, unspecified; F32.A Depression, unspecified; I82.409 Acute embolism and thrombosis of unspecified deep veins of unspecified lower extremity; Z79.01 Long term (current) use of anticoagulants; M17.11 Unilateral primary osteoarthritis, right knee; Z20.2 Contact with and (suspected) exposure to infections with a predominantly sexual mode of transmission; Z99.89 Dependence on other enabling machines and devices
CPT/HCPCS: 36415; 80053; 82247; 82962; 85027; 86593; 86780; 93005; 93010; C9803-CS; U0003; U0005

== ENCOUNTER 2022-09-13 11:39 | Inpatient (IN) | payer OTHER ==
[2022-09-13 12:08] VITALS: BMI 22.9
[2022-09-13] MEDS ORDERED: ACETAMINOPHEN 325 MG TABLET (FP) PO PRN (12:21)
[2022-09-13] MEDS ORDERED: BENZOCAINE/MENTHOL (CHLORASEPTIC ) LOZENGE MM PRN (12:21)
[2022-09-13] MEDS ORDERED: LOPERAMIDE HCL 2 MG CAPSULE PO PRN (12:21)
[2022-09-13] MEDS ORDERED: NICOTINE 7 MG/24 HOURS TOPICAL PATCH TD PRN (12:21)
[2022-09-13] MEDS ORDERED: BISMUTH SUBSALICYLATE 524 MG/30 ML PO PRN (12:21)
[2022-09-13] MEDS ORDERED: MAGNESIUM HYDROX 2400MG/30ML ORAL SUSPENSION 30 ML CUP PO PRN (12:21)
[2022-09-13] MEDS ORDERED: IBUPROFEN 600 MG TABLET (FP) PO PRN (12:21)
[2022-09-13] MEDS ORDERED: guaiFENesin 600 MG TABLET.ER (FP) PO PRN (12:21)
[2022-09-13] MEDS ORDERED: POLYETHYLENE GLYCOL (HEALTHYLAX) 3350 17 GM PACKET PO PRN (12:21)
[2022-09-13] MEDS ORDERED: IBUPROFEN 400 MG TABLET (FP) PO PRN (12:21)
[2022-09-13] MEDS ORDERED: BENZONATATE 200 MG CAPSULE PO PRN (12:21)
[2022-09-13] MEDS ORDERED: NICOTINE 10 MG CARTRIDGE (INHALER) IH PRN (12:21)
[2022-09-13] MEDS ORDERED: ONDANSETRON *ODT* 4 MG TABLET SL PRN (12:21)
[2022-09-13] MEDS ORDERED: MAG HYDROX/AL HYDROX/SIMETH 30 ML UNIT-DOSE CUP PO PRN (12:21)
[2022-09-13] MEDS ORDERED: NICOTINE POLACRILEX 2 MG GUM BUC PRN (12:21)
[2022-09-13] MEDS ORDERED: DICYCLOMINE HCL 10 MG CAPSULE PO PRN (12:21)
[2022-09-13] MEDS ORDERED: diazePAM 5 MG TABLET PO PRN ×2 (12:26→13:42)
[2022-09-13] MEDS ORDERED: BENZOCAINE 28 GM HEMORRHOIDAL OINTMENT RC PRN (12:55)
[2022-09-13 16:37] LABS: HEMATOCRIT 42.9 % (35.4-49); HEMOGLOBIN 14.3 GM/dL (11.7-16.9); MCH 30.5 pg (25.7-33.7); MCHC 33.3 g/dl (32.0-35.9); MEAN CELL VOLUME 91.7 fl (80-96); MEAN PLT VOLUME 8.2 fl (7.5-11.1); PLATELET COUNT 248 10^3/uL (134-434); RBC 4.68 M/mm3 (4.00-5.60); RDW 14.8 % (11.9-15.9); WHITE BLOOD COUNT 4.5 K/mm3 (4.0-10.0)
[2022-09-13 16:40] LABS: ALBUMIN 4.1 g/dl (3.4-5.0); BLOOD UREA NITROGEN 9.2 mg/dL (7-18)
[2022-09-13 16:43] LABS: CREATININE 0.7 mg/dL (0.55-1.3)
[2022-09-13 16:44] LABS: BILIRUBIN,TOTAL 0.4 mg/dL (0.2-1); TOT PROT 7.4 g/dl (6.4-8.2)
[2022-09-13] MEDS: diazePAM 5 MG TABLET PO SCH ×2 (17:14→22:24)
[2022-09-13] MEDS: FAMOTIDINE 20 MG TABLET PO SCH (22:24)
[2022-09-13] MEDS: THIAMINE HCL 100 MG TABLET (FP) PO SCH (22:24)
[2022-09-13] MEDS: MELATONIN 5 MG TABLETS PO SCH (22:24)
[2022-09-13] MEDS: APIXABAN 5 MG TABLET PO SCH (22:24)
[2022-09-14] MEDS: diazePAM 5 MG TABLET PO SCH ×4 (05:25→22:07)
[2022-09-14] MEDS: FAMOTIDINE 20 MG TABLET PO SCH ×2 (10:11→22:06)
[2022-09-14] MEDS: PRENATAL VITAMINS W/ FOLIC ACID TABLET (FP) PO SCH (10:11)
[2022-09-14] MEDS: APIXABAN 5 MG TABLET PO SCH ×2 (10:11→21:01)
[2022-09-14] MEDS: hydrOXYzine PAMOATE 25 MG CAPSULE (FP) PO PRN (10:12)
[2022-09-14] MEDS: METHOCARBAMOL 500 MG TABLET PO PRN (10:12)
[2022-09-14] MEDS: LACTULOSE 20 GM/30 ML UDC (FOR ORAL USE ONLY) PO SCH ×3 (13:16→22:06)
[2022-09-14] MEDS: MELATONIN 5 MG TABLETS PO SCH (22:06)
[2022-09-14] MEDS: THIAMINE HCL 100 MG TABLET (FP) PO SCH (22:07)
[2022-09-15] MEDS: diazePAM 5 MG TABLET PO SCH ×3 (05:55→22:26)
[2022-09-15] MEDS: METHOCARBAMOL 500 MG TABLET PO PRN (10:22)
[2022-09-15] MEDS: LACTULOSE 20 GM/30 ML UDC (FOR ORAL USE ONLY) PO SCH ×4 (10:23→22:26)
[2022-09-15] MEDS: APIXABAN 5 MG TABLET PO SCH ×2 (10:23→22:26)
[2022-09-15] MEDS: FAMOTIDINE 20 MG TABLET PO SCH ×2 (10:23→22:26)
[2022-09-15] MEDS: hydrOXYzine PAMOATE 25 MG CAPSULE (FP) PO PRN (10:23)
[2022-09-15] MEDS: PRENATAL VITAMINS W/ FOLIC ACID TABLET (FP) PO SCH (10:23)
[2022-09-15] MEDS: THIAMINE HCL 100 MG TABLET (FP) PO SCH (22:26)
[2022-09-15] MEDS: MELATONIN 5 MG TABLETS PO SCH (22:27)
[2022-09-16] MEDS: diazePAM 5 MG TABLET PO SCH ×2 (05:22→17:18)
[2022-09-16] MEDS: LACTULOSE 20 GM/30 ML UDC (FOR ORAL USE ONLY) PO SCH ×4 (10:08→22:50)
[2022-09-16] MEDS: hydrOXYzine PAMOATE 25 MG CAPSULE (FP) PO PRN (10:08)
[2022-09-16] MEDS: APIXABAN 5 MG TABLET PO SCH ×2 (10:08→22:07)
[2022-09-16] MEDS: FAMOTIDINE 20 MG TABLET PO SCH ×2 (10:08→22:07)
[2022-09-16] MEDS: METHOCARBAMOL 500 MG TABLET PO PRN (10:09)
[2022-09-16] MEDS: PRENATAL VITAMINS W/ FOLIC ACID TABLET (FP) PO SCH (10:09)
[2022-09-16] MEDS: THIAMINE HCL 100 MG TABLET (FP) PO SCH (22:07)
[2022-09-16] MEDS: MELATONIN 5 MG TABLETS PO SCH (22:08)
[2022-09-17] MEDS ORDERED: diazePAM 5 MG TABLET PO ONE (06:00)
[2022-09-17 10:16] VITALS: BP 116/67; PULSE 92; RESP 18; TEMP 97.3
[2022-09-17] MEDS: LACTULOSE 20 GM/30 ML UDC (FOR ORAL USE ONLY) PO SCH (10:48)
[2022-09-17] MEDS: PRENATAL VITAMINS W/ FOLIC ACID TABLET (FP) PO SCH (10:48)
[2022-09-17] MEDS: FAMOTIDINE 20 MG TABLET PO SCH (10:48)
[2022-09-17] MEDS: APIXABAN 5 MG TABLET PO SCH (10:48)
== END 2022-09-17 09:25 | disposition other institution (70) | DRG 897 ==
LOC: YASAS 11:39 → Y6N 12:39
PROVIDERS: ADMIT Allergy & Immunology; ATTEND Surgery
PROC: HZ2ZZZZ Detoxification Services for Substance Abuse Treatment (ICD-10-PCS; principal; 2022-09-13)
DX: F10.230 Alcohol dependence with withdrawal, uncomplicated (principal); F14.20 Cocaine dependence, uncomplicated; F19.280 Other psychoactive substance dependence with psychoactive substance-induced anxiety disorder; F19.282 Other psychoactive substance dependence with psychoactive substance-induced sleep disorder; F17.210 Nicotine dependence, cigarettes, uncomplicated; F41.9 Anxiety disorder, unspecified; J44.9 Chronic obstructive pulmonary disease, unspecified; N40.0 Benign prostatic hyperplasia without lower urinary tract symptoms; G56.01 Carpal tunnel syndrome, right upper limb; I82.561 Chronic embolism and thrombosis of right calf muscular vein; Z79.01 Long term (current) use of anticoagulants; Z86.19 Personal history of other infectious and parasitic diseases
CPT/HCPCS: 36415; 80053; 82140; 85027; 86593; 86780; 87811; C9803-CS; U0003; U0005